=== PATIENT | female | born 1965 | race Caucasian/White ===

== ENCOUNTER 2016-11-05 19:15 | Emergency (ER) | payer OTHER ==
[~2016-11-05] VITALS: Ht 162.5 cm; Wt 53.1 kg
[~2016-11-05 19:15] MED LIST: ASPIRIN EC325 MG PO; AUGMENTIN 875875 MG PO; BACTROBAN OINT22 GM PO; BENTYL10 MG PO; BUPROPION HCL150 M2 PO; CETIRIZINE10 MG PO; CIPRO250 MG PO; CIPRO500 MG PO; CIPROFLOXACIN500 MG PO; CLARITIN10 MG PO; COLACE100 MG PO; COREG6.25 MG PO; CYMBALTA30 MG PO; CYMBALTA60 MG PO; DAYPRO600 M1 PO; FLEXERIL10 MG PO; HYDROCODONE BIT1 T11 PO; K-DUR 2020 MEQ PO; K-LOR 20MEQ20 ME1 PO; LIPITOR40 MG PO; LISINOPRIL10 MG PO; LISINOPRIL5 MG PO; MEDROL DOSEPAK4 MG PO; METRONIDAZOLE500 MG PO; NORCO 5-325 TA1 EACH PO; Oscal,Oyster S500 MG PO; PAROXETINE10 MG PO; PERCOCET 325 MG1 TA2 PO; PRILOSEC20 M1 PO; PRILOSEC20 MG PO; PROTONIX IV40 MG PO; REGLAN10 MG PO; ROBAXIN750 MG PO; SEPTRA DS 800 M1 TAB PO; SEROQUEL XR300 MG PO; SIMVASTATIN80 MG PO; SYNTHROID,LEVO50 MCG PO; THYROID MED; TRAMADOL HCL50 MG PO; ULTRAM50 MG PO; VENTOLIN0.09 MG/AC INH; ZOFRAN ODT4 MG SL
[2016-11-05 19:30] VITALS: BP 130/78
[2016-11-05] MEDS ORDERED: OYSTER SHELL 51 EACH PO (19:31)
[2016-11-05] MEDS ORDERED: IBU800 MG PO (19:35)
[2016-11-05] MEDS ORDERED: IMODIUM A-D2 M2 PO (19:36)
[2016-11-05 20:08] LABS: BASO % 0.5 % (0.0-1.0); EOS # 0.1 10*3/uL (0.0-0.4); EOS % 0.9 % (1.0-4.0); HEMATOCRIT 41.5 % (37.0-47.0); HEMOGLOBIN 14.8 g/dl (12.0-16.0); LYMPH # 1.9 10*3/uL (1.3-4.4); LYMPH % 21.3 % (27.0-41.0); MEAN CELL VOLUME 88.5 fl (81.0-99.0); MEAN CORPUSCULAR HGB 31.6 pg (27.0-31.0); MEAN CORPUSCULAR HGB CONC 35.7 g/dl (33.0-37.0); MEAN PLATELET VOLUME 9.9 fl (9.6-12.3); MONO # 0.6 10*3/uL (0.1-1.0); MONO % 7.1 % (3.0-9.0); NEUT # 6.1 10*3/uL (2.3-7.9); NEUT % 70.1 % (47.0-73.0); PLATELET COUNT AUTOMATED 276 10*3/uL (130-400); RED BLOOD COUNT 4.69 10*6/uL (4.10-5.10); RED CELL DISTRI WIDTH 14.4 % (0-14.5); WHITE BLOOD COUNT 8.8 10*3/uL (4.8-10.8)
[2016-11-05 21:04] LABS: ALBUMIN 3.1 gm/dl (3.1-4.5); ALKALINE PHOSPHATASE 99 U/L (45-117); BILIRUBIN, TOTAL 0.4 mg/dl (0.2-1.0); BUN 8 mg/dl (7-24); CARBON DIOXIDE 22 mmol/L (21-32); CHLORIDE 109 mmol/L (98-107); EST GLOM FILT AFRICAN AMERICAN > 60 ml/min; GLUCOSE 80 mg/dL (65-99); POTASSIUM 3.1 mmol/L (3.5-5.1); SGOT/AST 17 IU/L (3-35); SGPT/ALT 9 U/L (12-78); SODIUM 143 mmol/L (136-145); TOTAL PROTEIN 5.9 gm/dL (6.4-8.2)
[2016-11-05] MEDS ORDERED: KLOR-CON M2020 ME1 PO (21:34)
== END 2016-11-05 21:33 | disposition home or self-care (01) ==
LOC: ED 19:15
PROVIDERS: Nurse Practitioner Family
DX: R11.2 Nausea with vomiting, unspecified (principal); F17.200 Nicotine dependence, unspecified, uncomplicated; I25.10 Atherosclerotic heart disease of native coronary artery without angina pectoris; G89.29 Other chronic pain; E78.5 Hyperlipidemia, unspecified; Z79.899 Other long term (current) drug therapy; Z79.82 Long term (current) use of aspirin; Z90.711 Acquired absence of uterus with remaining cervical stump; Z95.0 Presence of cardiac pacemaker

== ENCOUNTER → 2016-11-09 | Outpatient (CLI) | payer OTHER ==
[~2016-11-09] MED LIST changes: +IBU800 MG PO; +IMODIUM A-D2 M2 PO; +KLOR-CON M2020 ME1 PO; +OYSTER SHELL 51 EACH PO
== END | disposition home or self-care (01) ==
LOC: RESCLI 01:29
DX: I10 Essential (primary) hypertension (principal); J01.90 Acute sinusitis, unspecified; M54.40 Lumbago with sciatica, unspecified side; E78.2 Mixed hyperlipidemia; Z98.61 Coronary angioplasty status

== ENCOUNTER → 2016-12-07 | Outpatient (CLI) | payer OTHER | END | disposition home or self-care (01) | LOC: CANPRECLI → RESCLI 01:14 | DX: I10 Essential (primary) hypertension (principal); M54.40 Lumbago with sciatica, unspecified side; K21.9 Gastro-esophageal reflux disease without esophagitis; M54.9 Dorsalgia, unspecified; R09.82 Postnasal drip; J30.9 Allergic rhinitis, unspecified; F32.9 Major depressive disorder, single episode, unspecified; Z95.0 Presence of cardiac pacemaker; Z98.61 Coronary angioplasty status ==

== ENCOUNTER → 2017-03-22 | Outpatient (CLI) | payer OTHER | END | disposition home or self-care (01) | LOC: RESCLI 03:10 | DX: I10 Essential (primary) hypertension (principal); K21.9 Gastro-esophageal reflux disease without esophagitis; F32.9 Major depressive disorder, single episode, unspecified; M54.89 Other dorsalgia; E78.2 Mixed hyperlipidemia; E03.9 Hypothyroidism, unspecified; J45.20 Mild intermittent asthma, uncomplicated; Z90.710 Acquired absence of both cervix and uterus ==

== ENCOUNTER → 2017-09-27 | Outpatient (CLI) | payer OTHER | END | disposition home or self-care (01) | LOC: RESCLI 03:32 | DX: K21.9 Gastro-esophageal reflux disease without esophagitis (principal); F32.9 Major depressive disorder, single episode, unspecified; M54.89 Other dorsalgia; E78.2 Mixed hyperlipidemia; E03.9 Hypothyroidism, unspecified; J45.20 Mild intermittent asthma, uncomplicated; I10 Essential (primary) hypertension; K52.9 Noninfective gastroenteritis and colitis, unspecified; Z71.6 Tobacco abuse counseling; Z72.0 Tobacco use; Z95.5 Presence of coronary angioplasty implant and graft ==

== ENCOUNTER 2017-10-26 09:09 | Inpatient (IN) | payer OTHER ==
[2017-10-26] VITALS (9 sets, daily range): BP systolic 112–138; BP diastolic 53–75
[~2017-10-26] VITALS: Ht 163 cm; Wt 54.4 kg
[2017-10-26 09:49] LABS: BASO % 0.4 % (0.0-1.0); EOS # 0.1 10*3/uL (0.0-0.4); EOS % 1.9 % (1.0-4.0); HEMOGLOBIN 14.2 g/dl (12.0-16.0); LYMPH # 1.3 10*3/uL (1.3-4.4); LYMPH % 27.2 % (27.0-41.0); MEAN CELL VOLUME 90.9 fl (81.0-99.0); MEAN CORPUSCULAR HGB 30.7 pg (27.0-31.0); MEAN CORPUSCULAR HGB CONC 33.8 g/dl (33.0-37.0); MEAN PLATELET VOLUME 9.9 fl (9.6-12.3); MONO # 0.4 10*3/uL (0.1-1.0); NEUT # 2.9 10*3/uL (2.3-7.9); NEUT % 62.3 % (47.0-73.0); PLATELET COUNT AUTOMATED 201 10*3/uL (130-400); RED BLOOD COUNT 4.62 10*6/uL (4.10-5.10); RED CELL DISTRI WIDTH 12.9 % (0-14.5); WHITE BLOOD COUNT 4.6 10*3/uL (4.8-10.8)
[2017-10-26 10:00] LABS: ACT PARTIAL THROMBO TIME 28.1 SECONDS (20.8-31.5)
[2017-10-26 10:05] LABS: ALBUMIN 3.8 gm/dl (3.1-4.5); ALKALINE PHOSPHATASE 119 U/L (45-117); BUN 4 mg/dl (7-24); CHLORIDE 104 mmol/L (98-107); CREATININE 0.94 mg/dL (0.55-1.02); LIPASE 148 U/L (73-393); POTASSIUM 3.1 mmol/L (3.5-5.1); SGOT/AST 12 IU/L (3-35); SGPT/ALT 14 U/L (12-78); SODIUM 139 mmol/L (136-145); TOTAL PROTEIN 7.2 gm/dL (6.4-8.2)
[2017-10-26 10:06] LABS: TROPONIN I < 0.015 ng/ml (<0.045)
[2017-10-26] MEDS ORDERED: CLARITIN10 MG PO (11:42)
[2017-10-26] MEDS ORDERED: OSCAL/D,OYSTER250 MG PO (11:43)
[2017-10-26] MEDS ORDERED: REGLAN10 M1 PO (11:50)
[2017-10-27] VITALS: BP 122/69
[2017-10-27 06:29] LABS: HEMATOCRIT 38.9 % (37.0-47.0); HEMOGLOBIN 13.1 g/dl (12.0-16.0); MEAN CELL VOLUME 90.3 fl (81.0-99.0); MEAN CORPUSCULAR HGB 30.4 pg (27.0-31.0); MEAN CORPUSCULAR HGB CONC 33.7 g/dl (33.0-37.0); MEAN PLATELET VOLUME 9.9 fl (9.6-12.3); PLATELET COUNT AUTOMATED 209 10*3/uL (130-400); RED BLOOD COUNT 4.31 10*6/uL (4.10-5.10); RED CELL DISTRI WIDTH 12.6 % (0-14.5); WHITE BLOOD COUNT 10.2 10*3/uL (4.8-10.8)
[2017-10-27 06:45] LABS: BUN 9 mg/dl (7-24); CHLORIDE 105 mmol/L (98-107); CHOLESTEROL 137 mg/dL (<200); CREATININE 0.82 mg/dL (0.55-1.02); HDL CHOLESTEROL 42 mg/dl (40-60); LDL CHOLESTEROL 84 mg/dL (9-159); PHOSPHOROUS 3.7 mg/dL (2.5-4.9); TRIGLYCERIDES 53 mg/dl (<150); VLDL CHOLESTEROL 11 mg/dL (6-40)
[2017-10-27 06:51] LABS: THYROID STIM HORMONE (HS) 0.595 uIU/ml (0.358-4.75)
[2017-10-27 07:12] LABS: SODIUM 137 mmol/L (136-145)
[2017-10-27 07:17] LABS: POTASSIUM 4.4 mmol/L (3.5-5.1)
[2017-10-27 07:29] LABS: TOTAL CELLS COUNTED 100 #CELLS
[2017-10-27 07:30] LABS: PLATELET SUFFICIENCY NORMAL (NORMAL)
[2017-10-27 07:36] LABS: VITAMIN D, 25-HYDROXY 11.7 ng/mL (30-100)
[2017-10-27 08:00] VITALS: BP 128/67
[2017-10-27 12:00] VITALS: BP 119/69
[2017-10-27 16:00] VITALS: BP 119/65
[2017-10-27 20:00] VITALS: BP 125/71
[2017-10-28] VITALS: BP 122/71
[2017-10-28 08:00] VITALS: BP 114/91
[2017-10-28 12:00] VITALS: BP 128/69
[2017-10-28] MEDS ORDERED: PREDNISONE10 MG PO (12:57)
[2017-10-28] MEDS ORDERED: LEVOFLOXACIN500 MG PO (12:57)
== END 2017-10-28 13:18 | disposition home or self-care (01) | DRG 190 ==
LOC: ED 09:09 → EDHOLD 11:16 → 4E 11:16
PROVIDERS: Emergency Medicine; Student in an Organized Health Care Education/Training Program
DX: J44.0 Chronic obstructive pulmonary disease with (acute) lower respiratory infection (principal); J18.9 Pneumonia, unspecified organism; E87.2 Acidosis; I50.22 Chronic systolic (congestive) heart failure; E83.41 Hypermagnesemia; I25.110 Atherosclerotic heart disease of native coronary artery with unstable angina pectoris; J44.1 Chronic obstructive pulmonary disease with (acute) exacerbation; R07.9 Chest pain, unspecified; E87.6 Hypokalemia; K21.9 Gastro-esophageal reflux disease without esophagitis; F17.210 Nicotine dependence, cigarettes, uncomplicated; I25.10 Atherosclerotic heart disease of native coronary artery without angina pectoris; G89.29 Other chronic pain; F32.9 Major depressive disorder, single episode, unspecified; M50.30 Other cervical disc degeneration, unspecified cervical region; M51.37 Other intervertebral disc degeneration, lumbosacral region; E78.5 Hyperlipidemia, unspecified; Z79.82 Long term (current) use of aspirin; R73.9 Hyperglycemia, unspecified; E55.9 Vitamin D deficiency, unspecified; D72.810 Lymphocytopenia; Z71.6 Tobacco abuse counseling; Z90.710 Acquired absence of both cervix and uterus; I25.2 Old myocardial infarction; Z82.49 Family history of ischemic heart disease and other diseases of the circulatory system; Z95.810 Presence of automatic (implantable) cardiac defibrillator

== ENCOUNTER → 2018-02-08 | Outpatient (CLI) | payer OTHER ==
[~2018-02-08] MED LIST changes: +BUPROPION HCL150 M3 PO; +LEVAQUIN750 M1 PO; +LEVOFLOXACIN500 MG PO; +OSCAL/D,OYSTER250 MG PO; +POTASSIUM CHLO20 ME3 PO; +PREDNISONE10 MG PO; +REGLAN10 M1 PO
[2018-02-08 11:47] LABS: HEMATOCRIT 39.8 % (37.0-47.0); HEMOGLOBIN 12.9 g/dl (12.0-16.0); MEAN CELL VOLUME 94.3 fl (81.0-99.0); MEAN CORPUSCULAR HGB 30.6 pg (27.0-31.0); MEAN CORPUSCULAR HGB CONC 32.4 g/dl (33.0-37.0); MEAN PLATELET VOLUME 9.4 fl (9.6-12.3); RED BLOOD COUNT 4.22 10*6/uL (4.10-5.10); RED CELL DISTRI WIDTH 12.4 % (0-14.5); WHITE BLOOD COUNT 5.7 10*3/uL (4.8-10.8)
[2018-02-08 12:25] LABS: BUN 11 mg/dl (7-24); CHLORIDE 106 mmol/L (98-107); CHOLESTEROL 180 mg/dL (<200); CREATININE 0.94 mg/dL (0.55-1.02); POTASSIUM 3.9 mmol/L (3.5-5.1); SGOT/AST 13 IU/L (3-35); SGPT/ALT 15 U/L (12-78); SODIUM 139 mmol/L (136-145); TOTAL PROTEIN 7.2 gm/dL (6.4-8.2); TRIGLYCERIDES 133 mg/dl (<150); VLDL CHOLESTEROL 27 mg/dL (6-40)
[2018-02-08 12:37] LABS: ALKALINE PHOSPHATASE 87 U/L (45-117); HDL CHOLESTEROL 43 mg/dl (40-60); LDL CHOLESTEROL 110 mg/dL (9-159)
== END | disposition home or self-care (01) ==
LOC: LAB 10:46
PROVIDERS: Internal Medicine
DX: E78.2 Mixed hyperlipidemia (principal); E03.9 Hypothyroidism, unspecified; I10 Essential (primary) hypertension

== ENCOUNTER 2018-02-18 09:56 | Inpatient (IN) | payer OTHER ==
[~2018-02-18] VITALS: Ht 162.5 cm; Wt 53.8 kg
[2018-02-18] VITALS (7 sets, daily range): BP systolic 100–117; BP diastolic 45–73
--- NOTE | ~2018-02-18 | EKG ---
[place], [place] ELECTROCARDIOGRAM REPORT NAME: CLAUDINE TAN UNIT #: [id number] ROOM: 522 DOCTOR: BRYCE DRAFT REPORT BIRTHDATE: [birth year] [facility] Test Date: 2018-02-18 Test Time: 10:23:52 Pat Name: CLAUDINE TAN Department: Room: 522 Gender: F Corporate Operations Compliance Manager: : 1965 Requested By: JOYCE OVALLES PA-C Order Number: [id number] Reading MD: Carrillo Gore MD Measurements Intervals [place] Rate: 83 P: 79 SD: 171 QRS: 62 QRSD: 104 T: 103 QT: 359 QTc: 422 Interpretive Statements Sinus rhythm Anteroseptal infarct, age indeterminate Electronically Signed On 02-18-2018 15:53:12 PDT by Carrillo Gore MD CM:EKGRPT:ELECTROCARDIOGRAM REPORT [id number] JOYCE OVALLES PA-C EPIPHVERONICA DRAFT REPORT JOYCE OVALLES PA-C
--- NOTE | ~2018-02-18 | EKG ---
[place], [place] ELECTROCARDIOGRAM REPORT NAME: CLAUDINE TAN UNIT #: [id number] ROOM: 522 DOCTOR: BRYCE DRAFT REPORT BIRTHDATE: [birth year] [facility] Test Date: 2018-02-20 Test Time: 10:10:07 Pat Name: CLAUDINE TAN Department: Room: 522 1 Gender: F Events Traffic Controller: JOAQUIN CHOEB: 1965 Requested By: ARETHA ORTEGA Order Number: [id number] Reading MD: Carrillo Gore MD Measurements Intervals [place] Rate: 66 P: 63 MN: 156 QRS: 26 QRSD: 93 T: 94 QT: 414 QTc: 434 Interpretive Statements Sinus rhythm Anterior infarct, age indeterminate Lateral leads are also involved Compared to ECG 02/18/2018 10:23:52 No significant changes Electronically Signed On 02-20-2018 7:52:39 PDT by Carrillo Gore MD CM:EKGRPT:ELECTROCARDIOGRAM REPORT [id number] ARETHA ORTEGA EPIPHANY DRAFT REPORT ARETHA ORTEGA
--- NOTE | ~2018-02-18 | PROC NOTE ---
[place], [place] PROCEDURE NOTE NAME: CLAUDINE TAN UNIT #: [id number] ROOM: 522 DOCTOR: SIGRID CARBAJAL BIRTHDATE: [birth year] DOS: 02/20/2018 MODIFIED BARIUM SWALLOW LOCATION: [facility], Room 522, Bed 1. ORDERING DOCTOR: Dr. Franklyn Franz. RADIOLOGIST: Dr. Herrera. BACKGROUND INFORMATION: The patient a 52-year-old female who is seen for a modified barium swallow. This test was ordered to rule out aspiration due to pneumonia. The patient was admitted with shortness of breath, cough and poor intake. Further medical history includes sepsis, pacemaker, AFib, CAD, hypertension, [place] x 2, GERD and chronic back pain. The patient was alert and cooperative for today's assessment and denied dysphagia. She currently receives a regular diet and thin liquid. She admitted to poor appetite recently since she has been sick. Oral peripheral examination revealed that presence of top denture. Lingual, labial, and buccal skills were within normal limits in terms of strength, range of motion, and coordination. Respiratory status was within normal limits. METHODS AND MATERIALS USED FOR THE EXAM: The patient was positioned in the lateral plane and the exam was viewed under fluoroscopy. The patient was presented with a variety of consistencies to assess swallowing skills including applesauce mixed with barium presented in half teaspoon amounts, barium-coated cookie given in bite size piece and thin liquid barium taken by cup and straw. ORAL PHASE: Unremarkable. PHARYNGEAL PHASE: Unremarkable. ESOPHAGEAL PHASE: This phase of the swallow was not formally assessed during this exam. IMPRESSIONS AND RECOMMENDATIONS: Based upon assessment results, this 52-year-old patient presents with oral and pharyngeal swallowing skills that are within normal limits. Recommend the patient remain on present diet. No followup therapy is warranted at this time. Results and recommendations were shared with the patient and her nurse and they verbalized understanding. Thank you very much for this referral. Should you have any questions regarding this patient, please contact the speech pathologist at [phone]. [place], [place] PROCEDURE NOTE NAME: CLAUDINE TAN UNIT #: [id number] ROOM: 522 DOCTOR: SIGRID CARBAJAL BIRTHDATE: [birth year] SIGRID CARBAJAL CM:DUSTIN:PROCEDURE NOTE [id number] SIGRID CARBAJAL
[~2018-02-18 09:56] MED LIST changes: -BUPROPION HCL150 M3 PO; -LEVAQUIN750 M1 PO; -POTASSIUM CHLO20 ME3 PO
[2018-02-18 10:40] LABS: BASO % 0.1 % (0.0-1.0); EOS % 0.1 % (1.0-4.0); HEMATOCRIT 35.7 % (37.0-47.0); LYMPH % 5.8 % (27.0-41.0); MEAN CELL VOLUME 92.7 fl (81.0-99.0); MEAN CORPUSCULAR HGB 31.2 pg (27.0-31.0); MEAN CORPUSCULAR HGB CONC 33.6 g/dl (33.0-37.0); MEAN PLATELET VOLUME 9.6 fl (9.6-12.3); MONO # 1.1 10*3/uL (0.1-1.0); MONO % 6.5 % (3.0-9.0); NEUT # 14.5 10*3/uL (2.3-7.9); NEUT % 87.1 % (47.0-73.0); PLATELET COUNT AUTOMATED 207 10*3/uL (130-400); RED BLOOD COUNT 3.85 10*6/uL (4.10-5.10); RED CELL DISTRI WIDTH 12.7 % (0-14.5); WHITE BLOOD COUNT 16.7 10*3/uL (4.8-10.8)
[2018-02-18 10:58] LABS: ALKALINE PHOSPHATASE 91 U/L (45-117); BUN 10 mg/dl (7-24); CHLORIDE 103 mmol/L (98-107); CREATININE 0.89 mg/dL (0.55-1.02); POTASSIUM 3.7 mmol/L (3.5-5.1); SGOT/AST 7 IU/L (3-35); SGPT/ALT 15 U/L (12-78); SODIUM 136 mmol/L (136-145); TOTAL PROTEIN 7.5 gm/dL (6.4-8.2); TROPONIN I < 0.015 ng/ml (<0.045)
[2018-02-18] MEDS ORDERED: BUPROPION HCL150 M3 PO (12:16)
[2018-02-18] MEDS ORDERED: POTASSIUM CHLO20 ME3 PO (12:20)
[2018-02-18] MEDS ORDERED: OYSTER SHELL 51 EACH PO (12:21)
[2018-02-19] VITALS: BP 128/78
[2018-02-19 06:19] LABS: HEMATOCRIT 35.4 % (37.0-47.0); HEMOGLOBIN 11.5 g/dl (12.0-16.0); MEAN CELL VOLUME 95.4 fl (81.0-99.0); MEAN CORPUSCULAR HGB CONC 32.5 g/dl (33.0-37.0); MEAN PLATELET VOLUME 9.9 fl (9.6-12.3); PLATELET COUNT AUTOMATED 235 10*3/uL (130-400); RED BLOOD COUNT 3.71 10*6/uL (4.10-5.10); RED CELL DISTRI WIDTH 12.6 % (0-14.5); WHITE BLOOD COUNT 19.1 10*3/uL (4.8-10.8)
[2018-02-19 06:39] LABS: PLATELET SUFFICIENCY NORMAL (NORMAL); TOTAL CELLS COUNTED 100 #CELLS
[2018-02-19 06:44] LABS: BUN 14 mg/dl (7-24); CHLORIDE 104 mmol/L (98-107); CREATININE 0.95 mg/dL (0.55-1.02); POTASSIUM 3.8 mmol/L (3.5-5.1); SODIUM 138 mmol/L (136-145)
[2018-02-19 08:00] VITALS: BP 110/50
[2018-02-19 12:00] VITALS: BP 107/61
[2018-02-19 16:00] VITALS: BP 114/63
[2018-02-19 20:00] VITALS: BP 123/64
[2018-02-20] VITALS: BP 120/69
[2018-02-20 06:28] LABS: HEMATOCRIT 31.8 % (37.0-47.0); HEMOGLOBIN 10.8 g/dl (12.0-16.0); MEAN CORPUSCULAR HGB 31.1 pg (27.0-31.0); MEAN PLATELET VOLUME 9.4 fl (9.6-12.3); PLATELET COUNT AUTOMATED 241 10*3/uL (130-400); RED BLOOD COUNT 3.47 10*6/uL (4.10-5.10); RED CELL DISTRI WIDTH 12.5 % (0-14.5); WHITE BLOOD COUNT 17.9 10*3/uL (4.8-10.8)
[2018-02-20 06:31] LABS: MEAN CELL VOLUME 91.6 fl (81.0-99.0)
[2018-02-20 06:38] LABS: BUN 19 mg/dl (7-24); CHLORIDE 104 mmol/L (98-107); CREATININE 0.81 mg/dL (0.55-1.02); POTASSIUM 4.1 mmol/L (3.5-5.1); SODIUM 137 mmol/L (136-145)
[2018-02-20 07:21] LABS: PLATELET SUFFICIENCY NORMAL (NORMAL); TOTAL CELLS COUNTED 100 #CELLS
[2018-02-20 09:03] LABS: PHOSPHOROUS 3.9 mg/dL (2.5-4.9)
[2018-02-20 12:00] VITALS: BP 113/51
[2018-02-20 16:14] VITALS: BP 121/64
[2018-02-20 20:00] VITALS: BP 121/73
[2018-02-21] VITALS: BP 113/62
[2018-02-21 08:09] LABS: BASO % 0.1 % (0.0-1.0); EOS % 0.1 % (1.0-4.0); HEMATOCRIT 35.7 % (37.0-47.0); HEMOGLOBIN 11.6 g/dl (12.0-16.0); LYMPH # 0.8 10*3/uL (1.3-4.4); LYMPH % 7.6 % (27.0-41.0); MEAN CELL VOLUME 94.2 fl (81.0-99.0); MEAN CORPUSCULAR HGB 30.6 pg (27.0-31.0); MEAN CORPUSCULAR HGB CONC 32.5 g/dl (33.0-37.0); MEAN PLATELET VOLUME 9.3 fl (9.6-12.3); MONO # 0.4 10*3/uL (0.1-1.0); MONO % 3.9 % (3.0-9.0); NEUT # 9.4 10*3/uL (2.3-7.9); NEUT % 87.6 % (47.0-73.0); PLATELET COUNT AUTOMATED 303 10*3/uL (130-400); RED BLOOD COUNT 3.79 10*6/uL (4.10-5.10); RED CELL DISTRI WIDTH 12.5 % (0-14.5); WHITE BLOOD COUNT 10.8 10*3/uL (4.8-10.8)
[2018-02-21 08:38] LABS: BUN 21 mg/dl (7-24); CHLORIDE 105 mmol/L (98-107); CREATININE 0.93 mg/dL (0.55-1.02); PHOSPHOROUS 3.5 mg/dL (2.5-4.9); POTASSIUM 4.2 mmol/L (3.5-5.1); SODIUM 138 mmol/L (136-145)
[2018-02-21] MEDS ORDERED: LEVAQUIN750 M1 PO (11:10)
== END 2018-02-21 11:40 | disposition home or self-care (01) | DRG 871 ==
LOC: ED 09:56 → EDHOLD 10:56 → 5E 10:56
PROVIDERS: Internal Medicine; Physician Assistant; Student in an Organized Health Care Education/Training Program
PROC: BD1BYZZ Fluoroscopy of Mouth/Oropharynx using Other Contrast (ICD-10-PCS; principal; 2018-02-20)
DX: A41.9 Sepsis, unspecified organism (principal); J18.1 Lobar pneumonia, unspecified organism; J96.00 Acute respiratory failure, unspecified whether with hypoxia or hypercapnia; I11.0 Hypertensive heart disease with heart failure; I50.22 Chronic systolic (congestive) heart failure; J44.1 Chronic obstructive pulmonary disease with (acute) exacerbation; J44.0 Chronic obstructive pulmonary disease with (acute) lower respiratory infection; I48.91 Unspecified atrial fibrillation; E83.41 Hypermagnesemia; R73.9 Hyperglycemia, unspecified; E78.5 Hyperlipidemia, unspecified; F32.9 Major depressive disorder, single episode, unspecified; G89.29 Other chronic pain; D64.9 Anemia, unspecified; M54.9 Dorsalgia, unspecified; I25.10 Atherosclerotic heart disease of native coronary artery without angina pectoris; K21.9 Gastro-esophageal reflux disease without esophagitis; E03.9 Hypothyroidism, unspecified; M50.30 Other cervical disc degeneration, unspecified cervical region; M51.37 Other intervertebral disc degeneration, lumbosacral region; Z72.0 Tobacco use; Z71.6 Tobacco abuse counseling; I25.2 Old myocardial infarction; Z79.82 Long term (current) use of aspirin; Z79.899 Other long term (current) drug therapy; Z90.710 Acquired absence of both cervix and uterus; Z95.810 Presence of automatic (implantable) cardiac defibrillator; Z95.5 Presence of coronary angioplasty implant and graft; Z82.49 Family history of ischemic heart disease and other diseases of the circulatory system; Z85.41 Personal history of malignant neoplasm of cervix uteri

== ENCOUNTER → 2018-02-24 | Outpatient (CLI) | payer OTHER ==
[~2018-02-24] MED LIST changes: +BUPROPION HCL150 M3 PO; +LEVAQUIN750 M1 PO; +POTASSIUM CHLO20 ME3 PO
== END | disposition home or self-care (01) ==
LOC: RESCLI 02-21 03:41
DX: Z09 Encounter for follow-up examination after completed treatment for conditions other than malignant neoplasm (principal); I11.0 Hypertensive heart disease with heart failure; I50.22 Chronic systolic (congestive) heart failure; E78.2 Mixed hyperlipidemia; K21.9 Gastro-esophageal reflux disease without esophagitis; J44.9 Chronic obstructive pulmonary disease, unspecified; E55.9 Vitamin D deficiency, unspecified; F32.9 Major depressive disorder, single episode, unspecified; E03.9 Hypothyroidism, unspecified; Z71.6 Tobacco abuse counseling; Z72.0 Tobacco use; Z90.710 Acquired absence of both cervix and uterus

== ENCOUNTER → 2019-07-31 | Outpatient (CLI) | payer OTHER ==
[2019-07-31 14:14] LABS: HEMATOCRIT 39.7 % (37.0-47.0); HEMOGLOBIN 13.1 g/dl (12.0-16.0); MEAN CORPUSCULAR HGB 31.3 pg (27.0-31.0); MEAN PLATELET VOLUME 9.1 fl (9.6-12.3); RED BLOOD COUNT 4.18 10*6/uL (4.10-5.10); RED CELL DISTRI WIDTH 13.4 % (0-14.5); WHITE BLOOD COUNT 11.2 10*3/uL (4.8-10.8)
[2019-07-31 14:55] LABS: BUN 9 mg/dl (7-24); CHLORIDE 102 mmol/L (98-107); POTASSIUM 3.4 mmol/L (3.5-5.1); SODIUM 138 mmol/L (136-145)
[2019-07-31 15:00] LABS: VITAMIN D, 25-HYDROXY 10.2 ng/mL (30-100)
[2019-07-31 15:01] LABS: ALKALINE PHOSPHATASE 152 U/L (45-117); CHOLESTEROL 212 mg/dL (<200); CPK 33 U/L (26-192); FREE T4 0.75 ng/dl (0.76-1.46); HDL CHOLESTEROL 56 mg/dl (40-60); LDL CHOLESTEROL 137 mg/dL (9-159); SGOT/AST 8 IU/L (3-35); SGPT/ALT 8 U/L (12-78); TOTAL PROTEIN 7.4 gm/dL (6.4-8.2); TRIGLYCERIDES 97 mg/dl (<150); VLDL CHOLESTEROL 19 mg/dL (6-40)
== END | disposition home or self-care (01) ==
LOC: LAB 13:12
PROVIDERS: Family Medicine
DX: J18.9 Pneumonia, unspecified organism (principal); E78.00 Pure hypercholesterolemia, unspecified; E03.9 Hypothyroidism, unspecified; E55.9 Vitamin D deficiency, unspecified; R53.83 Other fatigue

== ENCOUNTER → 2019-08-15 | Outpatient (CLI) | payer OTHER | END | disposition home or self-care (01) | LOC: CT 16:42 | DX: J18.9 Pneumonia, unspecified organism (principal); J86.9 Pyothorax without fistula; F17.200 Nicotine dependence, unspecified, uncomplicated; R91.1 Solitary pulmonary nodule; R63.4 Abnormal weight loss ==

== ENCOUNTER → 2019-12-14 | Outpatient (CLI) | payer OTHER ==
[2019-12-14 11:29] LABS: HEMATOCRIT 40.6 % (37.0-47.0); MEAN CELL VOLUME 93.3 fl (81.0-99.0); MEAN CORPUSCULAR HGB 30.6 pg (27.0-31.0); MEAN CORPUSCULAR HGB CONC 32.8 g/dl (33.0-37.0); MEAN PLATELET VOLUME 9.1 fl (9.6-12.3); RED BLOOD COUNT 4.35 10*6/uL (4.10-5.10); RED CELL DISTRI WIDTH 13.2 % (0-14.5); WHITE BLOOD COUNT 7.1 10*3/uL (4.8-10.8)
[2019-12-14 11:56] LABS: ALBUMIN 3.4 gm/dl (3.1-4.5); ALKALINE PHOSPHATASE 123 U/L (45-117); BUN 7 mg/dl (7-24); CHLORIDE 108 mmol/L (98-107); CHOLESTEROL 205 mg/dL (<200); CPK 60 U/L (26-192); CREATININE 0.95 mg/dL (0.55-1.02); HDL CHOLESTEROL 53 mg/dl (40-60); LDL CHOLESTEROL 130 mg/dL (9-159); POTASSIUM 3.8 mmol/L (3.5-5.1); SGOT/AST 17 IU/L (3-35); SGPT/ALT 21 U/L (12-78); SODIUM 141 mmol/L (136-145); TOTAL PROTEIN 7.1 gm/dL (6.4-8.2); TRIGLYCERIDES 111 mg/dl (<150); VLDL CHOLESTEROL 22 mg/dL (6-40)
== END | disposition home or self-care (01) ==
LOC: LAB 10:51 → CT 11:00
PROVIDERS: Family Medicine
DX: J43.9 Emphysema, unspecified (principal); R91.8 Other nonspecific abnormal finding of lung field; I51.7 Cardiomegaly; I25.10 Atherosclerotic heart disease of native coronary artery without angina pectoris; E78.00 Pure hypercholesterolemia, unspecified; E78.9 Disorder of lipoprotein metabolism, unspecified; E55.9 Vitamin D deficiency, unspecified

== ENCOUNTER 2021-10-15 16:55 | Emergency (ER) | payer OTHER ==
[~2021-10-15] VITALS: Wt 47.6 kg
[2021-10-15 17:06] VITALS: BP 127/9
[2021-10-15 17:55] LABS: BASO % 0.6 % (0.0-1.0); EOS # 0.1 10*3/uL (0.0-0.4); EOS % 1.2 % (1.0-4.0); HEMATOCRIT 41.3 % (37.0-47.0); LYMPH % 30.5 % (27.0-41.0); MEAN CELL VOLUME 91.8 fl (81.0-99.0); MEAN CORPUSCULAR HGB 31.6 pg (27.0-31.0); MEAN CORPUSCULAR HGB CONC 34.4 g/dl (33.0-37.0); MEAN PLATELET VOLUME 9.3 fl (9.6-12.3); MONO # 0.4 10*3/uL (0.1-1.0); MONO % 6.8 % (3.0-9.0); NEUT # 3.9 10*3/uL (2.3-7.9); NEUT % 60.6 % (47.0-73.0); PLATELET COUNT AUTOMATED 224 10*3/uL (130-400); RED CELL DISTRI WIDTH 14.3 % (0-14.5); WHITE BLOOD COUNT 6.5 10*3/uL (4.8-10.8)
[2021-10-15 18:19] LABS: ALKALINE PHOSPHATASE 119 U/L (45-117); BUN 3 mg/dl (7-24); CHLORIDE 103 mmol/L (98-107); CREATININE 0.89 mg/dL (0.55-1.02); LIPASE 59 U/L (73-393); POTASSIUM 4.1 mmol/L (3.5-5.1); SGOT/AST 15 IU/L (3-35); SGPT/ALT 11 U/L (12-78); SODIUM 135 mmol/L (136-145); TOTAL PROTEIN 6.8 gm/dL (6.4-8.2)
[2021-10-15] MEDS ORDERED: LEVOTHYROXINE50 MCG PO (18:41)
[2021-10-15] MEDS ORDERED: OMEPRAZOLE20 M2 PO (18:41)
== END 2021-10-15 18:42 | disposition home or self-care (01) ==
LOC: ED 16:55
PROVIDERS: Physician Assistant
DX: E03.9 Hypothyroidism, unspecified (principal); K21.9 Gastro-esophageal reflux disease without esophagitis; Z79.899 Other long term (current) drug therapy; Z79.82 Long term (current) use of aspirin; Z90.710 Acquired absence of both cervix and uterus; Z98.890 Other specified postprocedural states

== ENCOUNTER 2022-07-08 16:54 | Emergency (ER) | payer OTHER ==
[~2022-07-08] VITALS: Ht 162.5 cm; Wt 45.4 kg
[~2022-07-08 16:54] MED LIST changes: +LEVOTHYROXINE50 MCG PO; +OMEPRAZOLE20 M2 PO; +SEROQUEL100 MG PO
[2022-07-08 17:07] VITALS: BP 109/69
[2022-07-08 17:22] LABS: BASO % 0.2 % (0.0-1.0); EOS % 0.2 % (1.0-4.0); HEMATOCRIT 36.7 % (37.0-47.0); LYMPH # 1.8 10*3/uL (1.3-4.4); LYMPH % 13.8 % (27.0-41.0); MEAN CELL VOLUME 89.1 fl (81.0-99.0); MEAN CORPUSCULAR HGB 30.8 pg (27.0-31.0); MEAN CORPUSCULAR HGB CONC 34.6 g/dl (33.0-37.0); MEAN PLATELET VOLUME 8.8 fl (9.6-12.3); MONO # 1.1 10*3/uL (0.1-1.0); MONO % 8.5 % (3.0-9.0); NEUT # 9.9 10*3/uL (2.3-7.9); NEUT % 76.9 % (47.0-73.0); PLATELET COUNT AUTOMATED 351 10*3/uL (130-400); RED BLOOD COUNT 4.12 10*6/uL (4.10-5.10); RED CELL DISTRI WIDTH 12.8 % (0-14.5); WHITE BLOOD COUNT 12.8 10*3/uL (4.8-10.8)
[2022-07-08 17:37] LABS: ALKALINE PHOSPHATASE 153 U/L (46-116); CHLORIDE 92 mmol/L (98-107); CREATININE 0.81 mg/dL (0.55-1.02); SODIUM 130 mmol/L (136-145); TOTAL PROTEIN 6.7 gm/dL (6.0-8.0)
[2022-07-08 17:38] LABS: ACT PARTIAL THROMBO TIME 33.9 SECONDS (20.0-32.1); INTERNATIONAL NORM RATIO 1.1 (2.0-3.5)
[2022-07-08 17:53] LABS: SGPT/ALT < 7 U/L (10-49)
[2022-07-08 17:54] LABS: BUN < 5 mg/dl (9-23)
[2022-07-08 17:57] LABS: POTASSIUM 2.2 mmol/L (3.4-5.1)
== END 2022-07-08 18:52 | disposition short-term general hospital (02) ==
LOC: ED 16:54
PROVIDERS: Emergency Medicine
DX: T82.897A Other specified complication of cardiac prosthetic devices, implants and grafts, initial encounter (principal); I24.9 Acute ischemic heart disease, unspecified; Z72.0 Tobacco use; Z90.710 Acquired absence of both cervix and uterus; Y83.8 Other surgical procedures as the cause of abnormal reaction of the patient, or of later complication, without mention of misadventure at the time of the procedure; Y92.89 Other specified places as the place of occurrence of the external cause

== ENCOUNTER 2023-01-04 16:31 | Inpatient (IN) | payer OTHER ==
[~2023-01-04] VITALS: Ht 162.5 cm; Wt 50.8 kg
[~2023-01-04 16:31] MED LIST changes: +ALDACTONE25 MG PO; +AMIODARONE HYD200 MG PO; +LISINOPRIL2.5 MG PO; +METOPROLOL SUCC25 M2 PO; +POTASSIUM CHLO20 ME4 PO; +VENTOLIN 02.5 MG/3 M INH; +ZITHROMAX TRI-500 M1 PO
[2023-01-04 16:41] VITALS: BP 134/83
[2023-01-04 17:20] LABS: BASO % 0.4 % (0.0-1.0); EOS % 0.6 % (1.0-4.0); HEMATOCRIT 41.2 % (37.0-47.0); LYMPH # 1.2 10*3/uL (1.3-4.4); LYMPH % 16.9 % (27.0-41.0); MEAN CELL VOLUME 95.2 fl (81.0-99.0); MEAN CORPUSCULAR HGB 31.6 pg (27.0-31.0); MEAN CORPUSCULAR HGB CONC 33.3 g/dl (33.0-37.0); MEAN PLATELET VOLUME 9.3 fl (9.6-12.3); MONO # 0.5 10*3/uL (0.1-1.0); MONO % 6.8 % (3.0-9.0); NEUT # 5.3 10*3/uL (2.3-7.9); NEUT % 74.9 % (47.0-73.0); PLATELET COUNT AUTOMATED 238 10*3/uL (130-400); RED BLOOD COUNT 4.33 10*6/uL (4.10-5.10); RED CELL DISTRI WIDTH 13.6 % (0-14.5); WHITE BLOOD COUNT 7.1 10*3/uL (4.8-10.8)
[2023-01-04 17:34] LABS: ACT PARTIAL THROMBO TIME 28.3 SECONDS (20.0-32.1); ALKALINE PHOSPHATASE 157 U/L (46-116); CHLORIDE 102 mmol/L (98-107); LIPASE 36 U/L (12-53); POTASSIUM 3.7 mmol/L (3.4-5.1); TOTAL PROTEIN 6.8 gm/dL (6.0-8.0)
[2023-01-04 17:57] LABS: BUN < 5 mg/dl (9-23); SGPT/ALT < 7 U/L (10-49)
[2023-01-04 20:02] VITALS: BP 130/78
[2023-01-04 20:25] VITALS: BP 138/61
[2023-01-04] MEDS ORDERED: QUETIAPINE FUM100 M3 PO (20:36)
[2023-01-04] MEDS ORDERED: MIRTAZAPINE15 M2 PO (20:36)
[2023-01-05] VITALS: BP 110/64
[2023-01-05 04:49] LABS: BILIRUBIN Negative (Negative); BLOOD Negative (Negative); CLARITY Clear (Clear); COLOR Yellow (Yellow); GLUCOSE Negative (Negative); KETONE Negative (Negative); LEUKO ESTERASE Negative (Negative); NITRITE Negative (Negative); PH 5.5 (4.5-8.0); UROBILINOGEN 0.2 E.U./dl (0.0-1.0)
[2023-01-05 05:00] LABS: BACTERIA 1+; MUCOUS 1+
[2023-01-05 06:33] LABS: HEMATOCRIT 35.3 % (37.0-47.0); LYMPH # 0.5 10*3/uL (1.3-4.4); LYMPH % 12.5 % (27.0-41.0); MEAN CELL VOLUME 93.4 fl (81.0-99.0); MEAN CORPUSCULAR HGB 31.2 pg (27.0-31.0); MEAN CORPUSCULAR HGB CONC 33.4 g/dl (33.0-37.0); MEAN PLATELET VOLUME 9.3 fl (9.6-12.3); MONO % 1.1 % (3.0-9.0); NEUT # 3.1 10*3/uL (2.3-7.9); NEUT % 86.1 % (47.0-73.0); PLATELET COUNT AUTOMATED 216 10*3/uL (130-400); RED BLOOD COUNT 3.78 10*6/uL (4.10-5.10); RED CELL DISTRI WIDTH 13.7 % (0-14.5); WHITE BLOOD COUNT 3.6 10*3/uL (4.8-10.8)
[2023-01-05 07:01] LABS: ALKALINE PHOSPHATASE 127 U/L (46-116); CHLORIDE 107 mmol/L (98-107); POTASSIUM 3.7 mmol/L (3.4-5.1); TOTAL PROTEIN 5.9 gm/dL (6.0-8.0)
[2023-01-05 07:04] LABS: BUN < 5 mg/dl (9-23); SGPT/ALT < 7 U/L (10-49)
[2023-01-05 07:40] LABS: VITAMIN D, 25-HYDROXY 23.5 ng/mL (30-100)
[2023-01-05 08:00] VITALS: BP 113/54
[2023-01-05 12:00] VITALS: BP 138/84
[2023-01-05 15:58] VITALS: BP 123/63
[2023-01-05 20:00] VITALS: BP 123/70
[2023-01-06] VITALS: BP 125/75
[2023-01-06 07:11] LABS: CHLORIDE 104 mmol/L (98-107); POTASSIUM 4.5 mmol/L (3.4-5.1)
[2023-01-06 07:12] LABS: BUN < 5 mg/dl (9-23)
[2023-01-06 07:31] LABS: HEMATOCRIT 35.8 % (37.0-47.0); MEAN CELL VOLUME 92.5 fl (81.0-99.0); MEAN CORPUSCULAR HGB 31.5 pg (27.0-31.0); MEAN CORPUSCULAR HGB CONC 34.1 g/dl (33.0-37.0); MEAN PLATELET VOLUME 9.6 fl (9.6-12.3); PLATELET COUNT AUTOMATED 252 10*3/uL (130-400); RED BLOOD COUNT 3.87 10*6/uL (4.10-5.10); RED CELL DISTRI WIDTH 14.1 % (0-14.5); WHITE BLOOD COUNT 18.5 10*3/uL (4.8-10.8)
[2023-01-06 07:34] LABS: MANUAL DIFF REFLEX YES
[2023-01-06 08:00] VITALS: BP 124/71
[2023-01-06 08:03] LABS: PLATELET SUFFICIENCY NORMAL (NORMAL); TOTAL CELLS COUNTED 100 #CELLS
[2023-01-06 12:00] VITALS: BP 128/73
[2023-01-06] MEDS ORDERED: ASPIRIN ADULT L81 M2 PO (13:02)
[2023-01-06] MEDS ORDERED: MEXILETINE HCL250 MG PO (13:02)
[2023-01-06] MEDS ORDERED: METOPROLOL SUCC50 M1 PO (13:02)
[2023-01-06] MEDS ORDERED: ENTRESTO 24 MG1 EACH PO (13:02)
[2023-01-06] MEDS ORDERED: PREDNISONE10 MG PO (13:02)
[2023-01-06] MEDS ORDERED: MUCUS RELIEF600 MG PO (13:02)
[2023-01-06] MEDS ORDERED: Vibra-Tab100 MG PO (13:02)
== END 2023-01-06 14:10 | disposition home or self-care (01) | DRG 720 ==
LOC: ED 16:31 → EDHOLD 18:36 → 5E 18:36
PROVIDERS: Emergency Medicine; Internal Medicine; Student in an Organized Health Care Education/Training Program; ADMIT Internal Medicine; ATTEND Internal Medicine
DX: A41.9 Sepsis, unspecified organism (principal); R07.89 Other chest pain; R65.20 Severe sepsis without septic shock; J44.1 Chronic obstructive pulmonary disease with (acute) exacerbation; E87.20 Acidosis, unspecified; E03.9 Hypothyroidism, unspecified; I45.81 Long QT syndrome; I25.10 Atherosclerotic heart disease of native coronary artery without angina pectoris; I25.5 Ischemic cardiomyopathy; F17.210 Nicotine dependence, cigarettes, uncomplicated; I49.01 Ventricular fibrillation; J18.9 Pneumonia, unspecified organism; I11.0 Hypertensive heart disease with heart failure; I50.22 Chronic systolic (congestive) heart failure; F32.A Depression, unspecified; Z45.02 Encounter for adjustment and management of automatic implantable cardiac defibrillator; I25.2 Old myocardial infarction; Z91.199 Patient's noncompliance with other medical treatment and regimen due to unspecified reason; Z90.710 Acquired absence of both cervix and uterus; Z95.810 Presence of automatic (implantable) cardiac defibrillator; Z79.51 Long term (current) use of inhaled steroids; Z79.899 Other long term (current) drug therapy; Z82.49 Family history of ischemic heart disease and other diseases of the circulatory system; Z95.5 Presence of coronary angioplasty implant and graft

== ENCOUNTER → 2023-02-10 | Outpatient (CLI) | payer OTHER ==
[~2023-02-10] MED LIST changes: +ASPIRIN ADULT L81 M2 PO; +ENTRESTO 24 MG1 EACH PO; +METOPROLOL SUCC50 M1 PO; +MEXILETINE HCL250 MG PO; +MIRTAZAPINE15 M2 PO; +MUCUS RELIEF600 MG PO; +QUETIAPINE FUM100 M3 PO; +Vibra-Tab100 MG PO
== END | disposition home or self-care (01) ==
LOC: CP 01:22
PROVIDERS: ATTEND Internal Medicine
DX: J43.9 Emphysema, unspecified (principal); R91.8 Other nonspecific abnormal finding of lung field; I25.10 Atherosclerotic heart disease of native coronary artery without angina pectoris

== ENCOUNTER 2023-07-25 16:37 | Emergency (ER) | payer OTHER ==
[~2023-07-25] VITALS: Ht 162.5 cm; Wt 48.1 kg
[2023-07-25 16:53] VITALS: BP 109/54
[2023-07-25 23:07] LABS: BASO % 0.2 % (0.0-1.0); EOS # 0.1 10*3/uL (0.0-0.4); EOS % 0.5 % (1.0-4.0); HEMATOCRIT 39.4 % (37.0-47.0); LYMPH # 1.3 10*3/uL (1.3-4.4); LYMPH % 10.3 % (27.0-41.0); MEAN CELL VOLUME 93.8 fl (81.0-99.0); MEAN CORPUSCULAR HGB 30.2 pg (27.0-31.0); MEAN CORPUSCULAR HGB CONC 32.2 g/dl (33.0-37.0); MEAN PLATELET VOLUME 8.7 fl (9.6-12.3); MONO # 1.1 10*3/uL (0.1-1.0); MONO % 8.4 % (3.0-9.0); NEUT # 10.1 10*3/uL (2.3-7.9); NEUT % 80.3 % (47.0-73.0); PLATELET COUNT AUTOMATED 287 10*3/uL (130-400); RED CELL DISTRI WIDTH 13.7 % (0-14.5); WHITE BLOOD COUNT 12.6 10*3/uL (4.8-10.8)
[2023-07-25 23:28] LABS: ALKALINE PHOSPHATASE 158 U/L (46-116); CHLORIDE 104 mmol/L (98-107); LIPASE 29 U/L (12-53); POTASSIUM 3.8 mmol/L (3.4-5.1); TOTAL PROTEIN 6.8 gm/dL (6.0-8.0)
[2023-07-25 23:33] LABS: BUN < 5 mg/dl (9-23); SGPT/ALT < 7 U/L (5-49)
[2023-07-26] MEDS ORDERED: PREDNISONE20 M1 PO (00:29)
[2023-07-26] MEDS ORDERED: ZITHROMAX250 MG PO (00:29)
== END 2023-07-26 00:36 | disposition home or self-care (01) ==
LOC: ED 16:37
PROVIDERS: Internal Medicine
DX: J40 Bronchitis, not specified as acute or chronic (principal); R11.10 Vomiting, unspecified; F32.A Depression, unspecified; I25.10 Atherosclerotic heart disease of native coronary artery without angina pectoris; I25.2 Old myocardial infarction; M19.90 Unspecified osteoarthritis, unspecified site; Z90.711 Acquired absence of uterus with remaining cervical stump; Z95.5 Presence of coronary angioplasty implant and graft; Z98.890 Other specified postprocedural states; F17.210 Nicotine dependence, cigarettes, uncomplicated; Z20.822 Contact with and (suspected) exposure to COVID-19

== ENCOUNTER 2023-11-02 15:03 | Emergency (ER) | payer OTHER ==
[~2023-11-02] VITALS: Wt 48.1 kg
[~2023-11-02 15:03] MED LIST changes: +PREDNISONE20 M1 PO; +ZITHROMAX250 MG PO
[2023-11-02 15:37] VITALS: BP 109/77
[2023-11-02] MEDS ORDERED: SODIUM CHLORIDE 0.9% 1,000 ML IV ONE (15:45)
[2023-11-02] MEDS ORDERED: Ondansetron Hydrochloride 4 MG/2 ML VIAL IV ONE (15:45)
[2023-11-02] MEDS ORDERED: Ondansetron Hydrochloride 4 MG TAB SL ONE (16:15)
[2023-11-02 16:31] LABS: ACT PARTIAL THROMBO TIME 33.7 SECONDS (20.0-32.1)
[2023-11-02 16:33] LABS: BILIRUBIN Negative (Negative); BLOOD Trace-Lysed (Negative); CLARITY Cloudy (Clear); COLOR Dark Yellow (Yellow); GLUCOSE Negative (Negative); KETONE Trace (Negative); LEUKO ESTERASE 3+ (Negative); NITRITE Negative (Negative); PH 5.5 (4.5-8.0); SPECIFIC GRAVITY 1.025 (1.001-1.030)
[2023-11-02 16:41] LABS: BACTERIA 2+; MUCOUS 1+; WBC 41-50 wbc/hpf (0-5)
[2023-11-02 16:46] LABS: ALKALINE PHOSPHATASE 135 U/L (46-116); CHLORIDE 101 mmol/L (98-107); LIPASE 34 U/L (12-53); POTASSIUM 3.4 mmol/L (3.4-5.1); TOTAL PROTEIN 6.6 gm/dL (6.0-8.0)
[2023-11-02 16:47] LABS: BUN < 5 mg/dl (9-23); SGPT/ALT < 7 U/L (5-49)
[2023-11-02] MEDS ORDERED: Ceftriaxone Sodium 1 GM/10 ML SYR IV ONE (16:50)
[2023-11-02 16:58] LABS: BASO % 0.3 % (0.0-1.0); EOS # 0.1 10*3/uL (0.0-0.4); EOS % 0.7 % (1.0-4.0); HEMATOCRIT 39.4 % (37.0-47.0); LYMPH # 1.1 10*3/uL (1.3-4.4); LYMPH % 12.5 % (27.0-41.0); MEAN CELL VOLUME 95.6 fl (81.0-99.0); MEAN CORPUSCULAR HGB 31.6 pg (27.0-31.0); MEAN PLATELET VOLUME 8.6 fl (9.6-12.3); MONO # 0.8 10*3/uL (0.1-1.0); MONO % 9.2 % (3.0-9.0); NEUT % 77.1 % (47.0-73.0); PLATELET COUNT AUTOMATED 263 10*3/uL (130-400); RED BLOOD COUNT 4.12 10*6/uL (4.10-5.10); RED CELL DISTRI WIDTH 13.5 % (0-14.5); WHITE BLOOD COUNT 9.1 10*3/uL (4.8-10.8)
[2023-11-02] MEDS ORDERED: OMNICEF300 MG PO (18:18)
[2023-11-02] MEDS ORDERED: ONDANSETRON4 MG SL (18:19)
== END 2023-11-02 18:48 | disposition home or self-care (01) ==
LOC: ED 15:03
PROVIDERS: Nurse Practitioner Family
DX: N39.0 Urinary tract infection, site not specified (principal); Z20.822 Contact with and (suspected) exposure to COVID-19; J42 Unspecified chronic bronchitis; R11.2 Nausea with vomiting, unspecified; F32.A Depression, unspecified; I25.10 Atherosclerotic heart disease of native coronary artery without angina pectoris; I25.2 Old myocardial infarction; I10 Essential (primary) hypertension; E03.9 Hypothyroidism, unspecified; F17.200 Nicotine dependence, unspecified, uncomplicated; Z95.0 Presence of cardiac pacemaker; Z79.899 Other long term (current) drug therapy; Z79.82 Long term (current) use of aspirin; Z79.2 Long term (current) use of antibiotics; Z86.14 Personal history of Methicillin resistant Staphylococcus aureus infection; Z90.711 Acquired absence of uterus with remaining cervical stump

== ENCOUNTER 2024-01-12 18:38 | Inpatient (IN) | payer OTHER ==
[~2024-01-12] VITALS: Ht 162.6 cm; Wt 33.6 kg
[~2024-01-12 18:38] MED LIST changes: +OMNICEF300 MG PO; +ONDANSETRON4 MG SL
[2024-01-12 18:45] VITALS: BP 121/62
[2024-01-12] MEDS ORDERED: SODIUM CHLORIDE 0.9% 1,000 ML IV ONE (19:20)
[2024-01-12] MEDS ORDERED: IOHEXOL 300 MG/ML 100 ML VIAL IV ONE (19:20)
[2024-01-12] MEDS ORDERED: Albuterol Sulf/Ipratropium 3 ML VIAL NEB ONE (19:20)
[2024-01-12] MEDS ORDERED: methylPREDNISolone sod succ 125 MG VIAL IV ONE (19:20)
[2024-01-12 20:31] LABS: BILIRUBIN Negative (Negative); BLOOD Trace-Lysed (Negative); CLARITY Cloudy (Clear); COLOR Yellow (Yellow); GLUCOSE Negative (Negative); KETONE Negative (Negative); LEUKO ESTERASE 2+ (Negative); NITRITE Negative (Negative); PH 5.5 (4.5-8.0)
[2024-01-12 20:32] LABS: BASO # 0.1 10*3/uL (0.0-0.1); BASO % 0.3 % (0.0-1.0); EOS % 0.1 % (1.0-4.0); HEMATOCRIT 39.9 % (37.0-47.0); LYMPH # 1.4 10*3/uL (1.3-4.4); LYMPH % 8.1 % (27.0-41.0); MEAN CELL VOLUME 98.5 fl (81.0-99.0); MEAN CORPUSCULAR HGB 31.9 pg (27.0-31.0); MEAN CORPUSCULAR HGB CONC 32.3 g/dl (33.0-37.0); MEAN PLATELET VOLUME 9.1 fl (9.6-12.3); MONO # 1.1 10*3/uL (0.1-1.0); MONO % 6.2 % (3.0-9.0); NEUT # 14.3 10*3/uL (2.3-7.9); NEUT % 84.4 % (47.0-73.0); PLATELET COUNT AUTOMATED 266 10*3/uL (130-400); RED BLOOD COUNT 4.05 10*6/uL (4.10-5.10); RED CELL DISTRI WIDTH 13.8 % (0-14.5); WHITE BLOOD COUNT 16.9 10*3/uL (4.8-10.8)
[2024-01-12 20:38] LABS: URINE AMPHETAMINES Positive (1000ng/ml); URINE BARBITURATES Negative (200ng/ml); URINE BENZODIAZEPINES Negative (200ng/ml); URINE CANNABINOIDS (THC) Positive (50ng/ml); URINE COCAINE Negative (300ng/ml); URINE METHADONE Negative (300ng/ml); URINE OPIATES Negative (300ng/ml); URINE PHENCYCLIDINE Negative (25ng/ml)
[2024-01-12 20:41] LABS: BACTERIA 3+; EPITHELIAL CELLS TNTC; WBC 51-100 wbc/hpf (0-5)
[2024-01-12 20:52] LABS: ALKALINE PHOSPHATASE 138 U/L (46-116); BUN 6 mg/dl (9-23); CHLORIDE 103 mmol/L (98-107); LIPASE 27 U/L (12-53); POTASSIUM 4.3 mmol/L (3.4-5.1); SGPT/ALT 13 U/L (5-49)
[2024-01-12 21:00] LABS: ETHYL ALCOHOL < 3.0 mg/dl (<3)
[2024-01-12] MEDS ORDERED: Ceftriaxone Sodium 1 GM/10 ML SYR IV ONE (21:35)
[2024-01-12] MEDS ORDERED: AZITHROMYCIN 250 ML IV ONE (21:35)
[2024-01-12] MEDS ORDERED: ACETAMINOPHEN 650 MG SUPP R PRN (23:40)
[2024-01-12] MEDS ORDERED: BISACODYL 10 MG SUPP R PRN (23:40)
[2024-01-12] MEDS ORDERED: Ondansetron Hydrochloride 4 MG/2 ML VIAL IV PRN (23:40)
[2024-01-12] MEDS ORDERED: Magnesium Hydroxide 30 ML UDC PO PRN (23:40)
[2024-01-12] MEDS ORDERED: ACETAMINOPHEN 325 MG TAB PO PRN (23:40)
[2024-01-12] MEDS ORDERED: BISACODYL 5 MG TAB PO PRN (23:40)
[2024-01-13] VITALS (7 sets, daily range): BP systolic 92–118; BP diastolic 43–72
[2024-01-13] MEDS ORDERED: Albuterol Sulf/Ipratropium 3 ML VIAL NEB SCH (00:10)
[2024-01-13] MEDS ORDERED: ECOTRIN325 M1 PO (00:35)
[2024-01-13] MEDS ORDERED: ATORVASTATIN CA80 M1 PO (00:45)
[2024-01-13] MEDS ORDERED: MEXILETINE HCL250 MG PO (00:46)
[2024-01-13] MEDS ORDERED: PANTOPRAZOLE SO40 MG PO (00:46)
[2024-01-13] MEDS ORDERED: QUETIAPINE FUMA50 M1 PO (00:47)
[2024-01-13] MEDS ORDERED: PROAIR RESPICL90 MCG INH (00:49)
[2024-01-13] MEDS ORDERED: TRELEGY ELLIPT1 EACH INH (00:51)
[2024-01-13] MEDS ORDERED: QUETIAPINE FUMARATE 50 MG TAB PO SCH (01:00)
[2024-01-13 04:28] LABS: HEMATOCRIT 35.5 % (37.0-47.0); MEAN CELL VOLUME 96.5 fl (81.0-99.0); MEAN CORPUSCULAR HGB 31.8 pg (27.0-31.0); MEAN PLATELET VOLUME 8.9 fl (9.6-12.3); PLATELET COUNT AUTOMATED 241 10*3/uL (130-400); RED BLOOD COUNT 3.68 10*6/uL (4.10-5.10); RED CELL DISTRI WIDTH 13.7 % (0-14.5)
[2024-01-13 04:29] LABS: MANUAL DIFF REFLEX YES
[2024-01-13 04:49] LABS: BURR CELLS FEW; PLATELET SUFFICIENCY NORMAL (NORMAL); TOTAL CELLS COUNTED 100 #CELLS
[2024-01-13 04:50] LABS: POLYCHROMASIA SLIGHT; SCHISTOCYTES FEW
[2024-01-13 04:53] LABS: BUN 6 mg/dl (9-23); CHLORIDE 106 mmol/L (98-107); CHOLESTEROL 99 mg/dL (<200); FREE T4 1.06 ng/dl (0.89-1.76); LDL CHOLESTEROL 50 mg/dL (9-159); POTASSIUM 4.1 mmol/L (3.4-5.1); TRIGLYCERIDES 53 mg/dl (<150); VITAMIN D, 25-HYDROXY 6.2 ng/mL (30-100)
[2024-01-13] MEDS ORDERED: Levothyroxine Sodium 50 MCG TAB PO SCH (06:00)
[2024-01-13] MEDS ORDERED: Pantoprazole Sodium 40 MG TAB PO SCH (06:00)
[2024-01-13] MEDS ORDERED: DOCUSATE SODIUM 100 MG CAP PO SCH (10:00)
[2024-01-13] MEDS ORDERED: ERGOCALCIFEROL 50,000 IU CAP (1.25 MG) PO SCH (10:00)
[2024-01-13] MEDS ORDERED: Enoxaparin Sodium 40 MG/0.4 ML SYR SC SCH (10:00)
[2024-01-13] MEDS ORDERED: GUAIFENESIN 600 MG TAB ER PO SCH (10:00)
[2024-01-13] MEDS ORDERED: [UNRECOGNIZED DRUG - OTHER] PO SCH (10:00)
[2024-01-13] MEDS ORDERED: METOPROLOL SUCCINATE XR 50 MG TAB PO SCH (10:00)
[2024-01-13] MEDS ORDERED: SPIRONOLACTONE 25 MG TAB PO SCH (10:00)
[2024-01-13] MEDS ORDERED: LEVOFLOXACIN 150 ML IV SCH (10:00)
[2024-01-13] MEDS ORDERED: POTASSIUM CHLORIDE 20 MEQ TAB PO SCH (10:00)
[2024-01-13] MEDS ORDERED: ASPIRIN ENTERIC COATED 81 MG TAB PO SCH (10:00)
[2024-01-13] MEDS ORDERED: Lactated Ringer's Solution 1,000 ML IV ONE (13:36)
[2024-01-13] MEDS ORDERED: ATORVASTATIN CALCIUM 80 MG TAB PO SCH (22:00)
[2024-01-14] VITALS: BP 101/52
[2024-01-14 05:23] LABS: BUN 8 mg/dl (9-23); CHLORIDE 108 mmol/L (98-107); POTASSIUM 3.5 mmol/L (3.4-5.1)
[2024-01-14 06:10] LABS: BASO % 0.1 % (0.0-1.0); EOS % 0.1 % (1.0-4.0); HEMATOCRIT 31.7 % (37.0-47.0); LYMPH # 1.4 10*3/uL (1.3-4.4); LYMPH % 8.8 % (27.0-41.0); MEAN CELL VOLUME 94.9 fl (81.0-99.0); MEAN CORPUSCULAR HGB 32.3 pg (27.0-31.0); MEAN CORPUSCULAR HGB CONC 34.1 g/dl (33.0-37.0); MEAN PLATELET VOLUME 9.3 fl (9.6-12.3); MONO # 0.9 10*3/uL (0.1-1.0); MONO % 5.5 % (3.0-9.0); NEUT # 13.8 10*3/uL (2.3-7.9); NEUT % 84.9 % (47.0-73.0); PLATELET COUNT AUTOMATED 277 10*3/uL (130-400); RED BLOOD COUNT 3.34 10*6/uL (4.10-5.10); WHITE BLOOD COUNT 16.3 10*3/uL (4.8-10.8)
[2024-01-14 08:00] VITALS: BP 106/49
[2024-01-14] MEDS ORDERED: Cholecalciferol 5,000 IU CAP (125 MCG) PO SCH (10:00)
[2024-01-14] MEDS ORDERED: methylPREDNISolone sod succ 40 MG VIAL IV SCH (10:00)
[2024-01-14] MEDS ORDERED: NEBULIZER (11:22)
[2024-01-14] MEDS ORDERED: PREDNISONE10 MG PO (11:22)
[2024-01-14] MEDS ORDERED: MUCINEX1200 M1 PO (11:22)
[2024-01-14] MEDS ORDERED: LEVOFLOXACIN750 M2 PO (11:22)
[2024-01-14 12:00] VITALS: BP 123/73
[2024-01-14 16:00] VITALS: BP 130/67
[2024-01-14 20:00] VITALS: BP 122/62
[2024-01-15] VITALS: BP 116/60
[2024-01-15 06:45] LABS: BASO % 0.1 % (0.0-1.0); HEMATOCRIT 34.5 % (37.0-47.0); LYMPH # 1.5 10*3/uL (1.3-4.4); LYMPH % 11.6 % (27.0-41.0); MEAN CELL VOLUME 96.1 fl (81.0-99.0); MEAN CORPUSCULAR HGB 32.6 pg (27.0-31.0); MEAN CORPUSCULAR HGB CONC 33.9 g/dl (33.0-37.0); MONO # 0.8 10*3/uL (0.1-1.0); MONO % 6.3 % (3.0-9.0); NEUT # 10.1 10*3/uL (2.3-7.9); NEUT % 81.4 % (47.0-73.0); PLATELET COUNT AUTOMATED 291 10*3/uL (130-400); RED BLOOD COUNT 3.59 10*6/uL (4.10-5.10); RED CELL DISTRI WIDTH 14.2 % (0-14.5); WHITE BLOOD COUNT 12.5 10*3/uL (4.8-10.8)
[2024-01-15 08:00] VITALS: BP 109/55
[2024-01-15] MEDS ORDERED: Fosfomycin Tromethamine 3 GM PDS PO ONE (13:00)
== END 2024-01-15 12:55 | disposition left against medical advice (07) | DRG 177 ==
LOC: ED 18:38 → EDHOLD 23:18 → 4E 01-13 17:45
PROVIDERS: Internal Medicine; Student in an Organized Health Care Education/Training Program; ADMIT Family Medicine; ATTEND Family Medicine
DX: J15.69 Pneumonia due to other Gram-negative bacteria (principal); E43 Unspecified severe protein-calorie malnutrition; J44.1 Chronic obstructive pulmonary disease with (acute) exacerbation; E87.1 Hypo-osmolality and hyponatremia; N39.0 Urinary tract infection, site not specified; I50.22 Chronic systolic (congestive) heart failure; Z68.1 Body mass index [BMI] 19.9 or less, adult; Z53.29 Procedure and treatment not carried out because of patient's decision for other reasons; J44.0 Chronic obstructive pulmonary disease with (acute) lower respiratory infection; K59.00 Constipation, unspecified; I25.10 Atherosclerotic heart disease of native coronary artery without angina pectoris; F32.A Depression, unspecified; E03.9 Hypothyroidism, unspecified; I25.5 Ischemic cardiomyopathy; D72.9 Disorder of white blood cells, unspecified; F17.210 Nicotine dependence, cigarettes, uncomplicated; D64.9 Anemia, unspecified; F15.10 Other stimulant abuse, uncomplicated; F12.90 Cannabis use, unspecified, uncomplicated; B96.20 Unspecified Escherichia coli [E. coli] as the cause of diseases classified elsewhere; Z90.711 Acquired absence of uterus with remaining cervical stump; Z95.0 Presence of cardiac pacemaker; Z82.49 Family history of ischemic heart disease and other diseases of the circulatory system; Z85.41 Personal history of malignant neoplasm of cervix uteri; Z71.6 Tobacco abuse counseling

== ENCOUNTER 2024-04-11 18:56 | Inpatient (IN) | payer OTHER ==
[~2024-04-11] VITALS: Ht 162.5 cm; Wt 45.4 kg
[~2024-04-11 18:56] MED LIST changes: +ATORVASTATIN CA80 M1 PO; +ECOTRIN325 M1 PO; +LEVOFLOXACIN750 M2 PO; +MUCINEX1200 M1 PO; +NEBULIZER; +PANTOPRAZOLE SO40 MG PO; +PROAIR RESPICL90 MCG INH; +QUETIAPINE FUMA50 M1 PO; +TRELEGY ELLIPT1 EACH INH
[2024-04-11 19:04] VITALS: BP 122/71
[2024-04-11] MEDS ORDERED: methylPREDNISolone sod succ 125 MG VIAL IV ONE (19:10)
[2024-04-11] MEDS ORDERED: Albuterol Sulf/Ipratropium 3 ML VIAL NEB ONE (19:10)
[2024-04-11 19:27] LABS: BASO % 0.4 % (0.0-1.0); EOS # 0.2 10*3/uL (0.0-0.4); EOS % 1.7 % (1.0-4.0); HEMATOCRIT 42.1 % (37.0-47.0); LYMPH # 2.1 10*3/uL (1.3-4.4); LYMPH % 19.1 % (27.0-41.0); MEAN CELL VOLUME 94.6 fl (81.0-99.0); MEAN CORPUSCULAR HGB 30.1 pg (27.0-31.0); MEAN CORPUSCULAR HGB CONC 31.8 g/dl (33.0-37.0); MEAN PLATELET VOLUME 9.5 fl (9.6-12.3); MONO # 0.9 10*3/uL (0.1-1.0); MONO % 7.9 % (3.0-9.0); NEUT # 7.6 10*3/uL (2.3-7.9); NEUT % 70.6 % (47.0-73.0); PLATELET COUNT AUTOMATED 353 10*3/uL (130-400); RED BLOOD COUNT 4.45 10*6/uL (4.10-5.10); RED CELL DISTRI WIDTH 12.9 % (0-14.5); WHITE BLOOD COUNT 10.8 10*3/uL (4.8-10.8)
[2024-04-11 19:51] LABS: ALKALINE PHOSPHATASE 154 U/L (46-116); CHLORIDE 106 mmol/L (98-107); POTASSIUM 3.6 mmol/L (3.4-5.1); SGPT/ALT 29 U/L (5-49); TOTAL PROTEIN 6.5 gm/dL (6.0-8.0)
[2024-04-11 19:53] LABS: BUN < 5 mg/dl (9-23)
[2024-04-11] MEDS ORDERED: Ceftriaxone Sodium 1 GM/10 ML SYR IV ONE (20:45)
[2024-04-11] MEDS ORDERED: AZITHROMYCIN 250 ML IV ONE (20:45)
[2024-04-11] MEDS ORDERED: METOPROLOL SUCC50 M1 PO (21:50)
[2024-04-11] MEDS ORDERED: QUETIAPINE FUMA50 M1 PO (21:55)
[2024-04-11] MEDS ORDERED: ASPIRIN ADULT L81 M2 PO (21:56)
[2024-04-11] MEDS ORDERED: LEVOTHYROXINE50 MCG PO (21:58)
[2024-04-11] MEDS ORDERED: MEXILETINE HCL250 MG PO (21:59)
[2024-04-11] MEDS ORDERED: ALBUTEROL SULF HFA 1 (22:00)
[2024-04-11] MEDS ORDERED: ACCUNEB 0.1.25 MG/1 INH (22:00)
[2024-04-12] VITALS (8 sets, daily range): BP systolic 104–128; BP diastolic 54–72
[2024-04-12] MEDS ORDERED: Albuterol Sulf/Ipratropium 3 ML VIAL NEB SCH (00:20)
[2024-04-12] MEDS ORDERED: LORATADINE 10 MG TAB PO SCH (10:00)
[2024-04-12] MEDS ORDERED: METOPROLOL SUCCINATE XR 50 MG TAB PO SCH (10:00)
[2024-04-12] MEDS ORDERED: POTASSIUM CHLORIDE 20 MEQ TAB PO SCH (10:00)
[2024-04-12] MEDS ORDERED: SPIRONOLACTONE 25 MG TAB PO SCH (10:00)
[2024-04-12] MEDS ORDERED: Pantoprazole Sodium 40 MG TAB PO SCH (10:00)
[2024-04-12] MEDS ORDERED: [UNRECOGNIZED DRUG - OTHER] PO SCH (10:00)
[2024-04-12] MEDS ORDERED: methylPREDNISolone sod succ 40 MG VIAL IV SCH (10:00)
[2024-04-12] MEDS ORDERED: ASPIRIN ENTERIC COATED 81 MG TAB PO SCH (10:00)
[2024-04-12] MEDS ORDERED: Levothyroxine Sodium 50 MCG TAB PO SCH (10:00)
[2024-04-12] MEDS ORDERED: ACETAMINOPHEN 325 MG TAB PO ONE (15:15)
[2024-04-12] MEDS ORDERED: AZITHROMYCIN 250 ML IV SCH (21:00)
[2024-04-12] MEDS ORDERED: ATORVASTATIN CALCIUM 80 MG TAB PO SCH (22:00)
[2024-04-12] MEDS ORDERED: QUETIAPINE FUMARATE 50 MG TAB PO SCH (22:00)
[2024-04-13] VITALS: BP 97/51
[2024-04-13 06:07] VITALS: BP 117/61
[2024-04-13 06:29] LABS: BUN 8 mg/dl (9-23); CHLORIDE 108 mmol/L (98-107); POTASSIUM 4.2 mmol/L (3.4-5.1)
[2024-04-13 07:05] LABS: HEMATOCRIT 37.7 % (37.0-47.0); MEAN CELL VOLUME 92.9 fl (81.0-99.0); MEAN CORPUSCULAR HGB 30.5 pg (27.0-31.0); MEAN CORPUSCULAR HGB CONC 32.9 g/dl (33.0-37.0); MEAN PLATELET VOLUME 10.4 fl (9.6-12.3); PLATELET COUNT AUTOMATED 337 10*3/uL (130-400); RED BLOOD COUNT 4.06 10*6/uL (4.10-5.10); WHITE BLOOD COUNT 17.5 10*3/uL (4.8-10.8)
[2024-04-13 07:07] LABS: MANUAL DIFF REFLEX YES
[2024-04-13 07:48] LABS: BURR CELLS FEW; PLATELET SUFFICIENCY NORMAL (NORMAL); TOTAL CELLS COUNTED 100 #CELLS
[2024-04-13 08:14] VITALS: BP 111/54
[2024-04-13] MEDS ORDERED: CEFUROXIME AXE250 MG PO (08:23)
[2024-04-13] MEDS ORDERED: PREDNISONE5 MG PO (08:23)
== END 2024-04-13 09:11 | disposition home or self-care (01) | DRG 192 ==
LOC: ED 18:56 → EDHOLD 20:46
PROVIDERS: Nurse Practitioner Family; ADMIT Internal Medicine; ATTEND Internal Medicine
DX: J44.1 Chronic obstructive pulmonary disease with (acute) exacerbation (principal); J20.9 Acute bronchitis, unspecified; K59.00 Constipation, unspecified; I25.10 Atherosclerotic heart disease of native coronary artery without angina pectoris; Z95.5 Presence of coronary angioplasty implant and graft; I25.2 Old myocardial infarction; Z95.810 Presence of automatic (implantable) cardiac defibrillator; Z90.711 Acquired absence of uterus with remaining cervical stump; Z82.49 Family history of ischemic heart disease and other diseases of the circulatory system

== ENCOUNTER 2024-04-16 18:42 | Emergency (ER) | payer OTHER ==
[~2024-04-16] VITALS: Ht 162.5 cm; Wt 45.4 kg
[~2024-04-16 18:42] MED LIST changes: +ACCUNEB 0.1.25 MG/1 INH; +ALBUTEROL SULF HFA 1; +Amiodarone Hydrochloride 150 MG/3 ML VIAL IV ONE; +CEFUROXIME AXE250 MG PO; +PREDNISONE5 MG PO
[2024-04-16] MEDS ORDERED: Amiodarone Hydrochloride 150 MG,IV 1 EA in DEXTROSE 5% 100 ML IV ONE (19:15)
[2024-04-16] MEDS ORDERED: Amiodarone Hydrochloride 900 MG in DEXTROSE 5% 500 ML IV SCH (19:15)
[2024-04-16] MEDS ORDERED: SODIUM CHLORIDE 0.9% 1,000 ML IV ONE (19:20)
[2024-04-16 19:28] LABS: BASO % 0.1 % (0.0-1.0); EOS # 0.1 10*3/uL (0.0-0.4); EOS % 0.4 % (1.0-4.0); HEMATOCRIT 39.1 % (37.0-47.0); LYMPH # 1.3 10*3/uL (1.3-4.4); LYMPH % 9.9 % (27.0-41.0); MEAN CELL VOLUME 97.8 fl (81.0-99.0); MEAN CORPUSCULAR HGB 30.3 pg (27.0-31.0); MEAN CORPUSCULAR HGB CONC 30.9 g/dl (33.0-37.0); MEAN PLATELET VOLUME 9.6 fl (9.6-12.3); MONO # 0.4 10*3/uL (0.1-1.0); MONO % 3.4 % (3.0-9.0); NEUT % 85.9 % (47.0-73.0); PLATELET COUNT AUTOMATED 337 10*3/uL (130-400); RED CELL DISTRI WIDTH 12.7 % (0-14.5); WHITE BLOOD COUNT 12.8 10*3/uL (4.8-10.8)
[2024-04-16 19:42] LABS: ACT PARTIAL THROMBO TIME 26.7 SECONDS (20.0-32.1)
[2024-04-16 19:56] LABS: POTASSIUM 2.9 mmol/L (3.4-5.1); TOTAL PROTEIN 5.9 gm/dL (6.0-8.0)
[2024-04-16] MEDS ORDERED: POTASSIUM CHLORIDE 20 MEQ TAB PO ONE (20:15)
[2024-04-16 23:40] VITALS: BP 121/67
== END 2024-04-17 00:02 | disposition short-term general hospital (02) ==
LOC: ED 18:42
PROVIDERS: Internal Medicine
DX: I47.20 Ventricular tachycardia, unspecified (principal); T82.897A Other specified complication of cardiac prosthetic devices, implants and grafts, initial encounter; E87.8 Other disorders of electrolyte and fluid balance, not elsewhere classified; N18.32 Chronic kidney disease, stage 3b; R79.89 Other specified abnormal findings of blood chemistry; D72.829 Elevated white blood cell count, unspecified; E44.1 Mild protein-calorie malnutrition; M19.90 Unspecified osteoarthritis, unspecified site; F12.90 Cannabis use, unspecified, uncomplicated; F15.10 Other stimulant abuse, uncomplicated; Z72.0 Tobacco use; Z68.1 Body mass index [BMI] 19.9 or less, adult; Z98.890 Other specified postprocedural states; Z90.711 Acquired absence of uterus with remaining cervical stump; Z95.5 Presence of coronary angioplasty implant and graft; Y71.8 Miscellaneous cardiovascular devices associated with adverse incidents, not elsewhere classified; Y92.009 Unspecified place in unspecified non-institutional (private) residence as the place of occurrence of the external cause

== ENCOUNTER 2024-04-28 15:41 | Observation (INO) | payer OTHER ==
[~2024-04-28] VITALS: Ht 162.6 cm; Wt 44.6 kg
[~2024-04-28 15:41] MED LIST changes: -Amiodarone Hydrochloride 150 MG/3 ML VIAL IV ONE
[2024-04-28] MEDS ORDERED: LORazepam 2 MG/ML VIAL IV ONE (16:00)
[2024-04-28 16:03] VITALS: BP 129/72
[2024-04-28 16:14] LABS: BASO % 0.2 % (0.0-1.0); EOS % 0.1 % (1.0-4.0); HEMATOCRIT 39.5 % (37.0-47.0); LYMPH # 0.3 10*3/uL (1.3-4.4); LYMPH % 2.3 % (27.0-41.0); MEAN CELL VOLUME 91.2 fl (81.0-99.0); MEAN CORPUSCULAR HGB CONC 32.9 g/dl (33.0-37.0); MEAN PLATELET VOLUME 9.4 fl (9.6-12.3); MONO % 7.1 % (3.0-9.0); NEUT # 12.3 10*3/uL (2.3-7.9); NEUT % 89.9 % (47.0-73.0); PLATELET COUNT AUTOMATED 167 10*3/uL (130-400); RED BLOOD COUNT 4.33 10*6/uL (4.10-5.10); RED CELL DISTRI WIDTH 13.1 % (0-14.5); WHITE BLOOD COUNT 13.7 10*3/uL (4.8-10.8)
[2024-04-28 16:38] LABS: BUN 10 mg/dl (9-23); CHLORIDE 95 mmol/L (98-107); POTASSIUM 4.7 mmol/L (3.4-5.1)
[2024-04-28] MEDS ORDERED: SODIUM CHLORIDE 0.9% 1,000 ML IV SCH ×2 (21:00)
[2024-04-28 22:02] VITALS: BP 99/52
[2024-04-29 06:33] LABS: BUN 9 mg/dl (9-23); CHLORIDE 100 mmol/L (98-107); POTASSIUM 3.8 mmol/L (3.4-5.1)
[2024-04-29 06:51] LABS: BASO % 0.2 % (0.0-1.0); EOS % 0.1 % (1.0-4.0); HEMATOCRIT 37.4 % (37.0-47.0); LYMPH # 0.6 10*3/uL (1.3-4.4); LYMPH % 5.6 % (27.0-41.0); MEAN CELL VOLUME 90.3 fl (81.0-99.0); MEAN CORPUSCULAR HGB 29.5 pg (27.0-31.0); MEAN CORPUSCULAR HGB CONC 32.6 g/dl (33.0-37.0); MONO # 0.6 10*3/uL (0.1-1.0); MONO % 5.4 % (3.0-9.0); NEUT # 9.8 10*3/uL (2.3-7.9); NEUT % 88.2 % (47.0-73.0); PLATELET COUNT AUTOMATED 147 10*3/uL (130-400); RED BLOOD COUNT 4.14 10*6/uL (4.10-5.10); RED CELL DISTRI WIDTH 13.1 % (0-14.5); WHITE BLOOD COUNT 11.1 10*3/uL (4.8-10.8)
[2024-04-29 08:00] VITALS: BP 119/51
[2024-04-29] MEDS ORDERED: Acetaminophen/Hydrocodone 5 MG/325 MG TABLET PO ONE (09:10)
[2024-04-29] MEDS ORDERED: Pantoprazole Sodium 40 MG TAB PO SCH (10:00)
[2024-04-29] MEDS ORDERED: ASPIRIN ENTERIC COATED 81 MG TAB PO SCH (10:00)
[2024-04-29] MEDS ORDERED: POTASSIUM CHLORIDE 20 MEQ TAB PO SCH (10:00)
[2024-04-29] MEDS ORDERED: METOPROLOL SUCCINATE XR 50 MG TAB PO SCH (10:00)
[2024-04-29] MEDS ORDERED: [UNRECOGNIZED DRUG - OTHER] PO SCH (10:00)
[2024-04-29] MEDS ORDERED: Levothyroxine Sodium 50 MCG TAB PO SCH (10:00)
[2024-04-29 12:00] VITALS: BP 147/70
[2024-04-29] MEDS ORDERED: PACERONE200 MG PO (17:10)
[2024-04-29] MEDS ORDERED: CEFDINIR300 MG PO (17:11)
[2024-04-29] MEDS ORDERED: AMIODARONE HYD200 MG PO (17:15)
[2024-04-29] MEDS ORDERED: MEXILETINE250 MG PO (17:17)
[2024-04-29] MEDS ORDERED: VENT7GM INH (17:20)
[2024-04-29] MEDS ORDERED: PROTONIX40 MG PO (17:27)
[2024-04-29] MEDS ORDERED: TOPROL XL25 MG PO (17:56)
[2024-04-29 20:00] VITALS: BP 106/53
[2024-04-29] MEDS ORDERED: ACETAMINOPHEN 325 MG TAB PO PRN (21:25)
[2024-04-29] MEDS ORDERED: ATORVASTATIN CALCIUM 80 MG TAB PO SCH (22:00)
[2024-04-29] MEDS ORDERED: QUETIAPINE FUMARATE 50 MG TAB PO SCH (22:00)
[2024-04-30] VITALS: BP 108/56
[2024-04-30 05:17] LABS: BUN 7 mg/dl (9-23); CHLORIDE 102 mmol/L (98-107); POTASSIUM 3.7 mmol/L (3.4-5.1)
[2024-04-30 06:31] LABS: BASO % 0.1 % (0.0-1.0); EOS # 0.1 10*3/uL (0.0-0.4); EOS % 0.9 % (1.0-4.0); LYMPH # 0.9 10*3/uL (1.3-4.4); LYMPH % 11.9 % (27.0-41.0); MEAN CELL VOLUME 92.4 fl (81.0-99.0); MEAN CORPUSCULAR HGB 30.3 pg (27.0-31.0); MEAN CORPUSCULAR HGB CONC 32.7 g/dl (33.0-37.0); MEAN PLATELET VOLUME 10.8 fl (9.6-12.3); MONO # 0.5 10*3/uL (0.1-1.0); MONO % 6.3 % (3.0-9.0); NEUT # 6.2 10*3/uL (2.3-7.9); NEUT % 80.4 % (47.0-73.0); PLATELET COUNT AUTOMATED 119 10*3/uL (130-400); RED BLOOD COUNT 3.57 10*6/uL (4.10-5.10); RED CELL DISTRI WIDTH 13.2 % (0-14.5); WHITE BLOOD COUNT 7.7 10*3/uL (4.8-10.8)
[2024-04-30 08:00] VITALS: BP 88/41
[2024-04-30 08:30] VITALS: BP 88/40
[2024-04-30] MEDS ORDERED: SODIUM CHLORIDE 0.9% 1,000 ML IV ONE (09:30)
[2024-04-30] MEDS ORDERED: METOPROLOL SUCCINATE XR 25 MG TAB PO SCH (10:00)
[2024-04-30 12:00] VITALS: BP 98/42
[2024-04-30 16:00] VITALS: BP 145/80
[2024-04-30 20:00] VITALS: BP 111/67
[2024-05-01] VITALS: BP 108/50
[2024-05-01 08:00] VITALS: BP 127/56
[2024-05-01] MEDS ORDERED: Acetaminophen/Hydrocodone 5 MG/325 MG TABLET PO ONE (08:35)
[2024-05-01 09:12] LABS: CHLORIDE 101 mmol/L (98-107); POTASSIUM 3.7 mmol/L (3.4-5.1)
[2024-05-01 09:14] LABS: BUN < 5 mg/dl (9-23)
[2024-05-01 12:00] VITALS: BP 108/60
[2024-05-01] MEDS ORDERED: [UNRECOGNIZED DRUG - OTHER] PO SCH (14:00)
[2024-05-01] MEDS ORDERED: SACUBITRIL/VALSARTAN 24 MG-26 MG TABLET PO SCH (22:00)
[2024-05-01] MEDS ORDERED: Amiodarone Hydrochloride 200 MG TAB PO SCH (22:00)
== END 2024-05-01 17:58 | disposition home or self-care (01) ==
LOC: ED 15:41 → 4E 17:17 → EDHOLD 17:17 → 4E 17:17
PROVIDERS: Emergency Medicine; Internal Medicine Nephrology; ADMIT Internal Medicine; ATTEND Internal Medicine
DX: E87.1 Hypo-osmolality and hyponatremia (principal); J44.9 Chronic obstructive pulmonary disease, unspecified; I12.9 Hypertensive chronic kidney disease with stage 1 through stage 4 chronic kidney disease, or unspecified chronic kidney disease; N18.2 Chronic kidney disease, stage 2 (mild); E78.5 Hyperlipidemia, unspecified; K21.9 Gastro-esophageal reflux disease without esophagitis; F32.9 Major depressive disorder, single episode, unspecified; I25.5 Ischemic cardiomyopathy; M51.370 Other intervertebral disc degeneration, lumbosacral region with discogenic back pain only; Z79.899 Other long term (current) drug therapy

== ENCOUNTER 2024-05-03 09:31 | Inpatient (IN) | payer OTHER ==
[~2024-05-03] VITALS: Ht 162.5 cm; Wt 42.2 kg
[~2024-05-03 09:31] MED LIST changes: +CEFDINIR300 MG PO; +MEXILETINE250 MG PO; +PACERONE200 MG PO; +PROTONIX40 MG PO; +TOPROL XL25 MG PO; +VENT7GM INH
[2024-05-03 09:33] VITALS: BP 137/76
[2024-05-03] MEDS ORDERED: ALDACTONE25 M1 PO (09:39)
[2024-05-03] MEDS ORDERED: LIPITOR80 MG PO (09:41)
[2024-05-03 09:55] LABS: BASO % 0.2 % (0.0-1.0); EOS % 0.9 % (1.0-4.0); HEMATOCRIT 35.6 % (37.0-47.0); LYMPH # 0.4 10*3/uL (1.3-4.4); LYMPH % 9.1 % (27.0-41.0); MEAN CELL VOLUME 90.4 fl (81.0-99.0); MEAN CORPUSCULAR HGB 29.7 pg (27.0-31.0); MEAN CORPUSCULAR HGB CONC 32.9 g/dl (33.0-37.0); MEAN PLATELET VOLUME 9.3 fl (9.6-12.3); MONO # 0.4 10*3/uL (0.1-1.0); MONO % 9.1 % (3.0-9.0); NEUT # 3.7 10*3/uL (2.3-7.9); NEUT % 80.3 % (47.0-73.0); PLATELET COUNT AUTOMATED 140 10*3/uL (130-400); RED BLOOD COUNT 3.94 10*6/uL (4.10-5.10); RED CELL DISTRI WIDTH 13.1 % (0-14.5); WHITE BLOOD COUNT 4.6 10*3/uL (4.8-10.8)
[2024-05-03] MEDS ORDERED: hydrOXYzine pamoate 25 MG CAP PO ONE (10:05)
[2024-05-03 10:15] LABS: CHLORIDE 101 mmol/L (98-107); POTASSIUM 3.1 mmol/L (3.4-5.1)
[2024-05-03 10:18] LABS: BUN < 5 mg/dl (9-23); ETHYL ALCOHOL < 3.0 mg/dl (<3)
[2024-05-03 10:43] LABS: BILIRUBIN Negative (Negative); BLOOD Negative (Negative); CLARITY Clear (Clear); COLOR Yellow (Yellow); GLUCOSE Negative (Negative); KETONE Negative (Negative); LEUKO ESTERASE 1+ (Negative); NITRITE Negative (Negative); PH 6.5 (4.5-8.0)
[2024-05-03 10:50] LABS: URINE AMPHETAMINES Positive (1000ng/ml); URINE BARBITURATES Negative (200ng/ml); URINE BENZODIAZEPINES Negative (200ng/ml); URINE CANNABINOIDS (THC) Positive (50ng/ml); URINE COCAINE Negative (300ng/ml); URINE METHADONE Negative (300ng/ml); URINE OPIATES Negative (300ng/ml); URINE PHENCYCLIDINE Negative (25ng/ml)
[2024-05-03] MEDS ORDERED: AZITHROMYCIN 250 ML IV ONE (11:00)
[2024-05-03] MEDS ORDERED: Ceftriaxone Sodium 1 GM/10 ML SYR IV ONE (11:00)
[2024-05-03 11:12] LABS: BACTERIA 1+; EPITHELIAL CELLS 16-20
[2024-05-03 13:16] VITALS: BP 120/69
[2024-05-03 15:00] VITALS: BP 125/74
[2024-05-03 16:00] VITALS: BP 120/71
[2024-05-03] MEDS ORDERED: POTASSIUM CHLORIDE 20 MEQ TAB PO ONE (16:00)
[2024-05-03] MEDS ORDERED: Piperacillin Sodium/Tazobact 50 ML IV SCH (18:00)
[2024-05-03] MEDS ORDERED: ACETAMINOPHEN 500 MG TAB PO PRN (18:10)
[2024-05-03] MEDS ORDERED: Albuterol Sulf/Ipratropium 3 ML VIAL NEB SCH (18:55)
[2024-05-03 20:00] VITALS: BP 133/73
[2024-05-03] MEDS ORDERED: QUETIAPINE FUMARATE 50 MG TAB PO SCH (22:00)
[2024-05-04] VITALS: BP 126/72
[2024-05-04 05:41] LABS: CHLORIDE 103 mmol/L (98-107); POTASSIUM 3.6 mmol/L (3.4-5.1)
[2024-05-04 05:42] LABS: BUN < 5 mg/dl (9-23)
[2024-05-04 08:00] VITALS: BP 107/57
[2024-05-04] MEDS ORDERED: AZITHROMYCIN 250 ML IV SCH (10:00)
[2024-05-04 12:00] VITALS: BP 113/59
[2024-05-04] MEDS ORDERED: Albuterol Sulfate 2.5 MG/3 ML VIAL NEB PRN (12:35)
[2024-05-04] MEDS ORDERED: Ondansetron Hydrochloride 4 MG TAB SL PRN (15:05)
[2024-05-04 16:00] VITALS: BP 114/60
[2024-05-04] MEDS ORDERED: Pantoprazole Sodium 40 MG TAB PO SCH (18:00)
[2024-05-04] MEDS ORDERED: Ondansetron Hydrochloride 4 MG TAB SL SCH (18:00)
[2024-05-04 20:00] VITALS: BP 103/67
[2024-05-05] VITALS: BP 111/57
[2024-05-05] MEDS ORDERED: Levothyroxine Sodium 50 MCG TAB PO SCH (06:00)
[2024-05-05 06:05] LABS: BUN 5 mg/dl (9-23); CHLORIDE 105 mmol/L (98-107); POTASSIUM 3.1 mmol/L (3.4-5.1)
[2024-05-05 08:00] VITALS: BP 127/71
[2024-05-05] MEDS ORDERED: METOPROLOL SUCCINATE XR 50 MG TAB PO SCH (10:00)
[2024-05-05] MEDS ORDERED: LORATADINE 10 MG TAB PO SCH (10:00)
[2024-05-05] MEDS ORDERED: SPIRONOLACTONE 25 MG TAB PO SCH (10:00)
[2024-05-05] MEDS ORDERED: POTASSIUM CHLORIDE 20 MEQ TAB PO SCH (10:00)
[2024-05-05] MEDS ORDERED: [UNRECOGNIZED DRUG - OTHER] PO SCH (10:00)
[2024-05-05] MEDS ORDERED: ASPIRIN ENTERIC COATED 81 MG TAB PO SCH (10:00)
[2024-05-05 12:00] VITALS: BP 107/60
[2024-05-05 16:00] VITALS: BP 144/64
[2024-05-05] MEDS ORDERED: POTASSIUM CHLORIDE 20 MEQ TAB PO ONE (17:15)
[2024-05-05 20:00] VITALS: BP 105/60
[2024-05-06] VITALS: BP 98/55
[2024-05-06 06:13] LABS: CHLORIDE 107 mmol/L (98-107)
[2024-05-06 06:22] LABS: BUN < 5 mg/dl (9-23); POTASSIUM 4.4 mmol/L (3.4-5.1)
[2024-05-06 08:00] VITALS: BP 121/68
[2024-05-06 12:00] VITALS: BP 114/67
[2024-05-06 16:00] VITALS: BP 130/60
[2024-05-06 20:00] VITALS: BP 107/56
[2024-05-07] VITALS: BP 108/58
[2024-05-07 08:00] VITALS: BP 112/69
== END 2024-05-07 15:10 | disposition home health service (06) | DRG 689 ==
LOC: ED 09:31 → EDHOLD 12:05 → 4E 12:05 → EDHOLD 12:06 → 4E 14:03
PROVIDERS: Internal Medicine; ADMIT Internal Medicine; ATTEND Internal Medicine
DX: N39.0 Urinary tract infection, site not specified (principal); J18.9 Pneumonia, unspecified organism; E87.1 Hypo-osmolality and hyponatremia; I42.9 Cardiomyopathy, unspecified; Z68.1 Body mass index [BMI] 19.9 or less, adult; J44.0 Chronic obstructive pulmonary disease with (acute) lower respiratory infection; I50.22 Chronic systolic (congestive) heart failure; B96.20 Unspecified Escherichia coli [E. coli] as the cause of diseases classified elsewhere; E87.6 Hypokalemia; I25.10 Atherosclerotic heart disease of native coronary artery without angina pectoris; F41.1 Generalized anxiety disorder; F15.90 Other stimulant use, unspecified, uncomplicated; F12.90 Cannabis use, unspecified, uncomplicated; F17.210 Nicotine dependence, cigarettes, uncomplicated; R62.7 Adult failure to thrive; B96.89 Other specified bacterial agents as the cause of diseases classified elsewhere; F32.A Depression, unspecified; T50.2X5A Adverse effect of carbonic-anhydrase inhibitors, benzothiadiazides and other diuretics, initial encounter; K21.00 Gastro-esophageal reflux disease with esophagitis, without bleeding; E03.9 Hypothyroidism, unspecified; Z79.899 Other long term (current) drug therapy; Z79.01 Long term (current) use of anticoagulants; Z79.2 Long term (current) use of antibiotics; Z90.710 Acquired absence of both cervix and uterus; Z82.49 Family history of ischemic heart disease and other diseases of the circulatory system; Y92.89 Other specified places as the place of occurrence of the external cause; R53.81 Other malaise

== ENCOUNTER 2024-06-26 15:53 | Inpatient (IN) | payer OTHER ==
[~2024-06-26] VITALS: Ht 162.5 cm; Wt 47.2 kg
[~2024-06-26 15:53] MED LIST changes: +ALDACTONE25 M1 PO; +LIPITOR80 MG PO
[2024-06-26 16:08] VITALS: BP 142/80
[2024-06-26] MEDS ORDERED: Albuterol Sulfate 2.5 MG/3 ML VIAL NEB ONE (16:20)
[2024-06-26] MEDS ORDERED: methylPREDNISolone sod succ 125 MG VIAL IM ONE (16:20)
[2024-06-26 16:46] LABS: BASO # 0.1 10*3/uL (0.0-0.1); BASO % 0.4 % (0.0-1.0); EOS # 0.1 10*3/uL (0.0-0.4); EOS % 1.1 % (1.0-4.0); HEMATOCRIT 38.6 % (37.0-47.0); MEAN CELL VOLUME 95.1 fl (81.0-99.0); MEAN CORPUSCULAR HGB 30.3 pg (27.0-31.0); MEAN CORPUSCULAR HGB CONC 31.9 g/dl (33.0-37.0); MEAN PLATELET VOLUME 8.6 fl (9.6-12.3); MONO % 8.2 % (3.0-9.0); NEUT # 9.8 10*3/uL (2.3-7.9); NEUT % 77.4 % (47.0-73.0); PLATELET COUNT AUTOMATED 329 10*3/uL (130-400); RED BLOOD COUNT 4.06 10*6/uL (4.10-5.10); RED CELL DISTRI WIDTH 14.2 % (0-14.5); WHITE BLOOD COUNT 12.7 10*3/uL (4.8-10.8)
[2024-06-26 17:01] LABS: ACT PARTIAL THROMBO TIME 31.1 SECONDS (20.0-32.1)
[2024-06-26 17:06] LABS: BUN 6 mg/dl (9-23); CHLORIDE 101 mmol/L (98-107); POTASSIUM 3.9 mmol/L (3.4-5.1)
[2024-06-26] MEDS ORDERED: Doxycycline Hyclate 100 MG CAP PO ONE (17:35)
[2024-06-26] MEDS ORDERED: Ceftriaxone Sodium 1 GM/10 ML SYR IV ONE (17:35)
[2024-06-26 22:46] VITALS: BP 108/56
[2024-06-27 05:04] VITALS: BP 128/66
[2024-06-27] MEDS ORDERED: Albuterol Sulf/Ipratropium 3 ML VIAL NEB SCH (07:45)
[2024-06-27 08:39] VITALS: BP 130/60
[2024-06-27] MEDS ORDERED: SPIRONOLACTONE 25 MG TAB PO SCH (10:00)
[2024-06-27] MEDS ORDERED: ATORVASTATIN CALCIUM 80 MG TAB PO SCH (10:00)
[2024-06-27] MEDS ORDERED: METOPROLOL SUCCINATE XR 50 MG TAB PO SCH (10:00)
[2024-06-27] MEDS ORDERED: [UNRECOGNIZED DRUG - OTHER] PO SCH (10:00)
[2024-06-27] MEDS ORDERED: AZITHROMYCIN 250 ML IV SCH (10:00)
[2024-06-27] MEDS ORDERED: Levothyroxine Sodium 50 MCG TAB PO SCH (10:00)
[2024-06-27] MEDS ORDERED: GUAIFENESIN 600 MG TAB ER PO SCH (10:00)
[2024-06-27] MEDS ORDERED: ACETAMINOPHEN 325 MG TAB PO PRN (11:05)
[2024-06-27 18:00] VITALS: BP 112/58
[2024-06-27] MEDS ORDERED: Ceftriaxone Sodium 1 GM in SYRINGE INFUSION 10 ML IV SCH (18:00)
[2024-06-27] MEDS ORDERED: QUETIAPINE FUMARATE 50 MG TAB PO SCH (22:00)
[2024-06-27 23:06] VITALS: BP 122/62
[2024-06-27 23:25] VITALS: BP 126/63
[2024-06-28 08:00] VITALS: BP 108/53
[2024-06-28 09:42] VITALS: BP 120/68
[2024-06-28 12:00] VITALS: BP 135/72
[2024-06-28 16:00] VITALS: BP 137/65
[2024-06-28 20:00] VITALS: BP 121/65
[2024-06-29] VITALS: BP 104/47
[2024-06-29 06:11] LABS: BUN 6 mg/dl (9-23); CHLORIDE 103 mmol/L (98-107); POTASSIUM 3.7 mmol/L (3.4-5.1)
[2024-06-29 06:14] LABS: BASO # 0.1 10*3/uL (0.0-0.1); BASO % 0.5 % (0.0-1.0); EOS # 0.2 10*3/uL (0.0-0.4); EOS % 1.6 % (1.0-4.0); MEAN CORPUSCULAR HGB CONC 31.9 g/dl (33.0-37.0); MEAN PLATELET VOLUME 8.8 fl (9.6-12.3); MONO # 1.2 10*3/uL (0.1-1.0); MONO % 10.8 % (3.0-9.0); NEUT # 7.5 10*3/uL (2.3-7.9); NEUT % 70.5 % (47.0-73.0); PLATELET COUNT AUTOMATED 379 10*3/uL (130-400); RED BLOOD COUNT 3.83 10*6/uL (4.10-5.10); RED CELL DISTRI WIDTH 14.4 % (0-14.5); WHITE BLOOD COUNT 10.6 10*3/uL (4.8-10.8)
[2024-06-29 08:00] VITALS: BP 107/49; BP 108/48
[2024-06-29] MEDS ORDERED: Ipratropium Brom3 ML NEB ×2 (08:37→08:38)
[2024-06-29] MEDS ORDERED: VIBRA-TAB100 MG PO (08:37)
[2024-06-29] MEDS ORDERED: AMOX-CLAV 875-1 EACH PO (08:45)
[2024-06-29 12:00] VITALS: BP 110/50; BP 134/49
[2024-06-29 13:00] VITALS: BP 110/50
== END 2024-06-29 15:41 | disposition home or self-care (01) | DRG 194 ==
LOC: ED 15:53 → EDHOLD 18:18 → 4E 06-27 22:24
PROVIDERS: Nurse Practitioner; ADMIT Internal Medicine; ATTEND Internal Medicine
DX: J18.9 Pneumonia, unspecified organism (principal); J44.0 Chronic obstructive pulmonary disease with (acute) lower respiratory infection; F41.1 Generalized anxiety disorder; J98.4 Other disorders of lung; I50.9 Heart failure, unspecified; E03.9 Hypothyroidism, unspecified; Z20.822 Contact with and (suspected) exposure to COVID-19; Z79.899 Other long term (current) drug therapy; Z79.01 Long term (current) use of anticoagulants; Z79.2 Long term (current) use of antibiotics; Z90.710 Acquired absence of both cervix and uterus; Z95.0 Presence of cardiac pacemaker; Z87.891 Personal history of nicotine dependence; Z82.49 Family history of ischemic heart disease and other diseases of the circulatory system

== ENCOUNTER 2024-08-24 19:41 | Emergency (ER) | payer OTHER ==
[~2024-08-24] VITALS: Ht 162.5 cm; Wt 45.4 kg
[2024-08-24 19:41] VITALS: BP 122/74
[~2024-08-24 19:41] MED LIST changes: +AMOX-CLAV 875-1 EACH PO; +Ipratropium Brom3 ML NEB; +VIBRA-TAB100 MG PO
[2024-08-24] MEDS ORDERED: Acetaminophen/Hydrocodone 5 MG/325 MG TABLET PO ONE (21:10)
[2024-08-24] MEDS ORDERED: methylPREDNISolone sod succ 125 MG VIAL IM ONE (21:10)
[2024-08-24] MEDS ORDERED: AVPAK AZITHROM250 M1 PO (21:52)
[2024-08-24] MEDS ORDERED: PREDNISONE50 MG PO (21:52)
[2024-08-24] MEDS ORDERED: AZITHROMYCIN 250 MG TAB PO ONE (21:55)
== END 2024-08-24 21:58 | disposition home or self-care (01) ==
LOC: ED 19:41
DX: J06.9 Acute upper respiratory infection, unspecified (principal); Z20.822 Contact with and (suspected) exposure to COVID-19; H92.03 Otalgia, bilateral; R59.0 Localized enlarged lymph nodes; F17.200 Nicotine dependence, unspecified, uncomplicated; Z79.899 Other long term (current) drug therapy; Z79.82 Long term (current) use of aspirin; Z90.711 Acquired absence of uterus with remaining cervical stump; Z95.0 Presence of cardiac pacemaker

== ENCOUNTER 2024-08-30 20:15 | Emergency (ER) | payer OTHER ==
[~2024-08-30] VITALS: Ht 162.5 cm; Wt 45.4 kg
[~2024-08-30 20:15] MED LIST changes: +AVPAK AZITHROM250 M1 PO; +PREDNISONE50 MG PO
[2024-08-30 21:24] LABS: BASO % 0.2 % (0.0-1.0); EOS # 0.3 10*3/uL (0.0-0.4); EOS % 2.5 % (1.0-4.0); HEMATOCRIT 38.2 % (37.0-47.0); MEAN CELL VOLUME 93.4 fl (81.0-99.0); MEAN CORPUSCULAR HGB 30.1 pg (27.0-31.0); MEAN CORPUSCULAR HGB CONC 32.2 g/dl (33.0-37.0); MEAN PLATELET VOLUME 8.4 fl (9.6-12.3); MONO # 0.9 10*3/uL (0.1-1.0); MONO % 7.8 % (3.0-9.0); NEUT # 7.9 10*3/uL (2.3-7.9); NEUT % 72.2 % (47.0-73.0); PLATELET COUNT AUTOMATED 325 10*3/uL (130-400); RED BLOOD COUNT 4.09 10*6/uL (4.10-5.10); RED CELL DISTRI WIDTH 13.5 % (0-14.5); WHITE BLOOD COUNT 10.9 10*3/uL (4.8-10.8)
[2024-08-30 21:39] LABS: BUN 8 mg/dl (9-23); CHLORIDE 100 mmol/L (98-107); POTASSIUM 3.3 mmol/L (3.4-5.1)
[2024-08-31] MEDS ORDERED: methylPREDNISolone sod succ 125 MG VIAL IM ONE (00:05)
[2024-08-31] MEDS ORDERED: PREDNISONE20 M1 PO (00:09)
[2024-08-31] MEDS ORDERED: POTASSIUM CHLORIDE 20 MEQ TAB PO ONE (00:10)
[2024-08-31 00:17] VITALS: BP 133/58
== END 2024-08-31 00:23 | disposition home or self-care (01) ==
LOC: ED 20:15
PROVIDERS: Internal Medicine
DX: J20.8 Acute bronchitis due to other specified organisms (principal); Z20.822 Contact with and (suspected) exposure to COVID-19; E87.6 Hypokalemia; N18.31 Chronic kidney disease, stage 3a; F17.200 Nicotine dependence, unspecified, uncomplicated; Z79.899 Other long term (current) drug therapy; Z79.2 Long term (current) use of antibiotics; Z79.82 Long term (current) use of aspirin; Z90.711 Acquired absence of uterus with remaining cervical stump; Z95.810 Presence of automatic (implantable) cardiac defibrillator

== ENCOUNTER 2024-10-16 19:54 | Inpatient (IN) | payer OTHER ==
[~2024-10-16] VITALS: Ht 162.6 cm; Wt 45.4 kg
[2024-10-16 20:06] VITALS: BP 116/66
[2024-10-16] MEDS ORDERED: methylPREDNISolone sod succ 125 MG VIAL IV ONE (20:40)
[2024-10-16] MEDS ORDERED: Albuterol Sulf/Ipratropium 3 ML VIAL NEB ONE (20:40)
[2024-10-16 20:53] LABS: BASO % 0.1 % (0.0-1.0); EOS % 0.2 % (1.0-4.0); HEMATOCRIT 32.4 % (37.0-47.0); MEAN CELL VOLUME 91.8 fl (81.0-99.0); MEAN CORPUSCULAR HGB CONC 32.7 g/dl (33.0-37.0); MEAN PLATELET VOLUME 8.7 fl (9.6-12.3); MONO # 1.1 10*3/uL (0.1-1.0); MONO % 10.6 % (3.0-9.0); NEUT # 8.9 10*3/uL (2.3-7.9); NEUT % 84.2 % (47.0-73.0); PLATELET COUNT AUTOMATED 275 10*3/uL (130-400); RED BLOOD COUNT 3.53 10*6/uL (4.10-5.10); RED CELL DISTRI WIDTH 15.9 % (0-14.5); WHITE BLOOD COUNT 10.5 10*3/uL (4.8-10.8)
[2024-10-16 21:12] LABS: BUN 9 mg/dl (9-23); CHLORIDE 95 mmol/L (98-107); POTASSIUM 3.9 mmol/L (3.4-5.1)
[2024-10-16 23:20] VITALS: BP 93/52
[2024-10-16] MEDS ORDERED: cefTRIAXone Sodium 1 GM/10 ML SYR IV ONE (23:45)
[2024-10-16] MEDS ORDERED: Doxycycline Hyclate 100 MG in SODIUM CHLORIDE 0.9% 250 ML IV ONE (23:50)
[2024-10-16] MEDS ORDERED: SODIUM CHLORIDE 0.9% 1,000 ML IV SCH (23:50)
[2024-10-17] VITALS (7 sets, daily range): BP systolic 93–112; BP diastolic 45–57
[2024-10-17] MEDS ORDERED: Piperacillin Sodium/Tazobact 50 ML IV ONE (00:05)
[2024-10-17] MEDS ORDERED: SODIUM CHLORIDE 0.9% 1,000 ML IV ONE ×2 (00:10→10:00)
[2024-10-17] MEDS ORDERED: GOOD SENSE ASP325 MG PO (02:45)
[2024-10-17] MEDS ORDERED: POTASSIUM CHLO10 ME4 PO (02:52)
[2024-10-17] MEDS ORDERED: Piperacillin Sodium/Tazobact 50 ML IV SCH (08:00)
[2024-10-17] MEDS ORDERED: Albuterol Sulfate 2.5 MG/3 ML VIAL NEB PRN (09:10)
[2024-10-17] MEDS ORDERED: Albuterol Sulf/Ipratropium 3 ML VIAL NEB SCH (09:15)
[2024-10-17] MEDS ORDERED: SODIUM CHLORIDE 0.9% 1,000 ML IV SCH ×2 (09:20→09:59)
[2024-10-17 09:58] LABS: BUN 7 mg/dl (9-23); CHLORIDE 100 mmol/L (98-107); POTASSIUM 3.8 mmol/L (3.4-5.1)
[2024-10-17] MEDS ORDERED: POTASSIUM CHLORIDE 10 MEQ TAB PO SCH (10:00)
[2024-10-17] MEDS ORDERED: LORATADINE 10 MG TAB PO SCH (10:00)
[2024-10-17] MEDS ORDERED: ATORVASTATIN CALCIUM 80 MG TAB PO SCH (10:00)
[2024-10-17] MEDS ORDERED: ASPIRIN 325 MG TAB PO SCH (10:00)
[2024-10-17] MEDS ORDERED: Doxycycline Hyclate 100 MG CAPSULE PO SCH (10:00)
[2024-10-17] MEDS ORDERED: METOPROLOL SUCCINATE XR 50 MG TAB PO SCH (10:00)
[2024-10-17] MEDS ORDERED: Amiodarone Hydrochloride 200 MG TAB PO SCH (10:00)
[2024-10-17] MEDS ORDERED: SPIRONOLACTONE 25 MG TAB PO SCH (10:00)
[2024-10-17] MEDS ORDERED: Pantoprazole Sodium 40 MG TAB PO SCH (10:00)
[2024-10-17] MEDS ORDERED: QUEtiapine FUMARATE 50 MG TAB PO SCH (22:00)
[2024-10-18] VITALS: BP 102/50
[2024-10-18 05:56] LABS: BUN 9 mg/dl (9-23); CHLORIDE 106 mmol/L (98-107); POTASSIUM 3.4 mmol/L (3.4-5.1)
[2024-10-18] MEDS ORDERED: Levothyroxine Sodium 50 MCG TAB PO SCH (06:00)
[2024-10-18 06:07] LABS: BASO % 0.1 % (0.0-1.0); HEMATOCRIT 27.5 % (37.0-47.0); MEAN CELL VOLUME 91.4 fl (81.0-99.0); MEAN CORPUSCULAR HGB 31.2 pg (27.0-31.0); MEAN CORPUSCULAR HGB CONC 34.2 g/dl (33.0-37.0); MONO # 0.9 10*3/uL (0.1-1.0); MONO % 5.9 % (3.0-9.0); NEUT # 13.7 10*3/uL (2.3-7.9); NEUT % 88.7 % (47.0-73.0); PLATELET COUNT AUTOMATED 318 10*3/uL (130-400); RED BLOOD COUNT 3.01 10*6/uL (4.10-5.10); RED CELL DISTRI WIDTH 16.7 % (0-14.5); WHITE BLOOD COUNT 15.4 10*3/uL (4.8-10.8)
[2024-10-18 08:00] VITALS: BP 99/47
[2024-10-18] MEDS ORDERED: FUROSEMIDE 20 MG/2 ML VIAL IV SCH (11:20)
[2024-10-18 12:00] VITALS: BP 115/56
[2024-10-18 16:00] VITALS: BP 112/51
[2024-10-18] MEDS ORDERED: ACETAMINOPHEN 500 MG TAB PO PRN (16:55)
[2024-10-18 20:00] VITALS: BP 100/50
[2024-10-19] VITALS: BP 110/60
[2024-10-19 04:00] VITALS: BP 107/60
[2024-10-19 06:46] LABS: BUN 9 mg/dl (9-23); CHLORIDE 104 mmol/L (98-107)
[2024-10-19 06:57] LABS: POTASSIUM 3.1 mmol/L (3.4-5.1)
[2024-10-19] MEDS ORDERED: Albuterol Sulf/Ipratropium 3 ML VIAL NEB ONE (07:25)
[2024-10-19 08:00] VITALS: BP 112/60
[2024-10-19] MEDS ORDERED: ASPIRIN 325 MG ENTERIC COATED PO SCH (10:39)
[2024-10-19] MEDS ORDERED: POTASSIUM CHLORIDE 20 MEQ TAB PO ONE (11:35)
[2024-10-19 12:00] VITALS: BP 103/71
[2024-10-19 16:00] VITALS: BP 100/54
[2024-10-19 20:00] VITALS: BP 103/56; BP 103/59
[2024-10-20] VITALS: BP 103/59; BP 83/53
[2024-10-20 04:00] VITALS: BP 97/56
[2024-10-20 07:10] LABS: BUN 13 mg/dl (9-23); CHLORIDE 96 mmol/L (98-107); POTASSIUM 3.8 mmol/L (3.4-5.1)
[2024-10-20 08:00] VITALS: BP 109/56
[2024-10-20 12:00] VITALS: BP 99/56
[2024-10-20 16:00] VITALS: BP 90/45
[2024-10-20 20:00] VITALS: BP 87/49
[2024-10-21] VITALS: BP 87/51
[2024-10-21 04:00] VITALS: BP 94/56
[2024-10-21 08:00] VITALS: BP 104/54
[2024-10-21 09:00] VITALS: BP 86/46
[2024-10-21 12:00] VITALS: BP 92/49
[2024-10-21 16:00] VITALS: BP 109/63
[2024-10-22] VITALS: BP 75/45; BP 90/56
[2024-10-22 08:00] VITALS: BP 101/57
[2024-10-22 09:10] VITALS: BP 88/50
[2024-10-22 12:00] VITALS: BP 82/50
[2024-10-22 16:00] VITALS: BP 102/49
[2024-10-22 20:00] VITALS: BP 132/67
[2024-10-23] VITALS: BP 143/52
[2024-10-23 00:12] VITALS: BP 100/44
[2024-10-23 08:00] VITALS: BP 109/53
[2024-10-23 08:45] LABS: BUN 11 mg/dl (9-23); CHLORIDE 99 mmol/L (98-107); POTASSIUM 3.7 mmol/L (3.4-5.1)
[2024-10-23] MEDS ORDERED: METOPROLOL SUCCINATE XR 25 MG TAB PO SCH (10:00)
[2024-10-23] MEDS ORDERED: IOHEXOL 300 MG/ML 100 ML VIAL IV ONE (10:15)
[2024-10-23 12:00] VITALS: BP 101/54
[2024-10-23 16:00] VITALS: BP 106/59
[2024-10-23 20:00] VITALS: BP 107/51
[2024-10-24] VITALS: BP 94/52
[2024-10-24 06:39] LABS: BUN 12 mg/dl (9-23); CHLORIDE 101 mmol/L (98-107); POTASSIUM 3.7 mmol/L (3.4-5.1)
[2024-10-24 08:00] VITALS: BP 116/59
== END 2024-10-24 13:29 | disposition home or self-care (01) | DRG 178 ==
LOC: ED 19:54 → EDHOLD 10-17 00:17 → 5E 10-17 00:17
PROVIDERS: Emergency Medicine; ADMIT Internal Medicine; ATTEND Internal Medicine
DX: J15.69 Pneumonia due to other Gram-negative bacteria (principal); E87.1 Hypo-osmolality and hyponatremia; J44.1 Chronic obstructive pulmonary disease with (acute) exacerbation; I50.22 Chronic systolic (congestive) heart failure; I42.9 Cardiomyopathy, unspecified; J44.0 Chronic obstructive pulmonary disease with (acute) lower respiratory infection; E78.2 Mixed hyperlipidemia; Z20.822 Contact with and (suspected) exposure to COVID-19; Z66 Do not resuscitate; R26.2 Difficulty in walking, not elsewhere classified; F41.1 Generalized anxiety disorder; I25.10 Atherosclerotic heart disease of native coronary artery without angina pectoris; R73.9 Hyperglycemia, unspecified; E03.9 Hypothyroidism, unspecified; F17.200 Nicotine dependence, unspecified, uncomplicated; R53.81 Other malaise; K21.9 Gastro-esophageal reflux disease without esophagitis; I11.0 Hypertensive heart disease with heart failure; Z71.6 Tobacco abuse counseling; Z95.810 Presence of automatic (implantable) cardiac defibrillator; Z82.49 Family history of ischemic heart disease and other diseases of the circulatory system; Z79.899 Other long term (current) drug therapy; Z90.710 Acquired absence of both cervix and uterus; Z95.5 Presence of coronary angioplasty implant and graft

== ENCOUNTER 2025-03-09 16:10 | Emergency (ER) | payer OTHER ==
[~2025-03-09 16:10] MED LIST changes: +GOOD SENSE ASP325 MG PO; +POTASSIUM CHLO10 ME4 PO
[2025-03-09 16:12] VITALS: BP 142/78
[2025-03-09] MEDS ORDERED: DIATRIZOATE MEG/DIATRIZO. SOD 120 ML BOT PO ONE (16:40)
[2025-03-09] MEDS ORDERED: IOHEXOL 300 MG/ML 100 ML VIAL IV ONE (19:25)
[2025-03-09 20:11] LABS: BASO # 0.0 10*3/uL (0.0-0.1); BASO % 0.2 % (0.0-1.0); EOS # 0.1 10*3/uL (0.0-0.4); EOS % 0.4 % (1.0-4.0); MEAN CELL VOLUME 87.5 fl (81.0-99.0); MEAN CORPUSCULAR HGB 28.2 pg (27.0-31.0); MEAN PLATELET VOLUME 8.5 fl (9.6-12.3); MONO # 1.2 10*3/uL (0.1-1.0); MONO % 6.4 % (3.0-9.0); NEUT # 16.3 10*3/uL (2.3-7.9); NEUT % 87.6 % (47.0-73.0); NUCLEATED RED BLOOD CELL 0.0 % (0.0-0.0); NUCLEATED RED BLOOD CELL 0.0 10*3/uL (0.0-0.0); PLATELET COUNT AUTOMATED 488 10*3/uL (130-400); RED CELL DISTRI WIDTH 14.4 % (0-14.5)
[2025-03-09 20:24] LABS: BUN 11 mg/dl (9-23)
== END 2025-03-09 23:09 | disposition left against medical advice (07) ==
LOC: ED 16:10
PROVIDERS: Emergency Medicine
DX: Z43.1 Encounter for attention to gastrostomy (principal); F32.A Depression, unspecified; I25.10 Atherosclerotic heart disease of native coronary artery without angina pectoris; Z90.710 Acquired absence of both cervix and uterus